=== PATIENT | female | born 1960 | race African-American/Black ===

== ENCOUNTER 2025-01-09 13:18 | Outpatient (REF) | payer MEDICAID, SELFPAY ==
--- NOTE | ~2025-01-09 | XR_ITS ---
CLINICAL HISTORY: M25.511 - Pain in right shoulder 3 view right shoulder Comparison: None Findings: Bones intact. No dislocations. Glenohumeral joint space loss with osteophyte formation. Subacromial space is maintained. Mild AC joint hypertrophy. No erosions. No radiopaque foreign body. IMPRESSION: 1. Degenerative changes of the glenohumeral and AC joint. No fracture or malalignment. This document has been electronically signed by: Randee Mittal MD on 01/11/2025 08:58:49
== END 2025-01-09 13:19 | disposition home or self-care (01) ==
LOC: HO.HOSX 13:18
PROVIDERS: Visit Provider Physician Assistant
DX: M25.511 Pain in right shoulder (principal); M19.011 Primary osteoarthritis, right shoulder
CPT/HCPCS: 73030; 99212

== ENCOUNTER 2025-01-09 14:21 | Outpatient (AMB) | payer MEDICAID, SELFPAY ==
--- NOTE | 2025-01-09 14:52 | MHC.OFFVIS ---
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 was told rotator cuff replacement. cortisone injection did not help at [facility]. humerus lump at bicep that radiates up to her shoulder. constant. No other tx. PT made her pain worse. numbness and tingling in her fingers. 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 She denies injury. She states she has been having pain with daily activities. She has pain at night with sleeping. She has done physical therapy in the past with minimal relief. 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 Tenderness over the bicipital groove and along deltoid region of the shoulder. FF to 175, ER to 90, IR to S1. 5/5 RTC strength, negative jones, cross body abduction. NVI. Results Reviewed Results Reviewed: Xrays were obtained in the office today and personally reviewed by me of the right shoulder show mild acj / ghj oa Assessment & Plan Assessment & Plan (1) Osteoarthritis of right shoulder: Code(s): M19.011 - Primary osteoarthritis, right shoulder Category: Medical Plan Given her ongoing pain and weakness with activity an MRI of the right shoulder has been ordered to further evaluate the rotator cuff and surrounding structures. Once this is complete I will contact her to discuss the next step in her treatment. Orders: Orders MR shoulder RT wo con Today M77.8 - Other enthesopathies, not elsewhere classified XR shoulder RT min 2V Today M25.511 - Pain in right shoulder Coding Level of Care Code New Pt Level 3 (56000) Complex EM visit Add On G2211 Diagnoses Osteoarthritis of right shoulder M19.011
[2025-01-09 14:56] VITALS: BMI 34.7
== END 2025-01-09 15:48 | disposition home or self-care (01) ==
LOC: HO.HOS 14:22
PROVIDERS: Visit Provider Physician Assistant
DX: M19.011 Primary osteoarthritis, right shoulder (principal)
CPT/HCPCS: 99203

== ENCOUNTER → 2025-01-09 14:38 | Outpatient (BNV) | payer MEDICAID, SELFPAY | PROVIDERS: Visit Provider Radiology Diagnostic Radiology | DX: M19.011 Primary osteoarthritis, right shoulder (principal) | CPT/HCPCS: 73030 ==

== ENCOUNTER 2025-01-12 07:31 | Outpatient (REF) | payer MEDICAID, SELFPAY ==
--- NOTE | ~2025-01-12 | MR_ITS ---
EXAMINATION: MRI RIGHT SHOULDER WITHOUT CONTRAST HISTORY: M77.8 - Other enthesopathies, not elsewhere classified COMPARISON: Correlation is made with plain films of the right shoulder dated 01/09/2025. TECHNIQUE: Coronal T1, T2, and fat suppressed T2, axial fat suppressed proton density, and sagittal T2 weighted MR images of the right shoulder were obtained. FINDINGS: Bone Marrow: There are subchondral cysts in the humeral head in the region of the greater tuberosity. Joint effusion: There is no glenohumeral joint effusion. Glenohumeral joint: There is severe osteoarthritis of the glenohumeral joint with cartilage loss and osteophyte formation. AC joint: There is a moderate to severe osteoarthritis of the AC joint. Supraspinatus muscle/tendon: There is intrasubstance increased T2 signal intensity consistent with degeneration. There is irregularity of the supraspinatus tendon, particularly at its joint surface, consistent with a partial tear. Small focus of fluid signal intensity is seen at the insertion of the tendon which may indicate a small full-thickness tear. There is trace fluid in the subdeltoid bursa. Normal muscle bulk. Infraspinatus muscle/tendon: The infraspinatus tendon is intact. Normal muscle bulk. Teres minor muscle/tendon: The teres minor tendon is intact. Normal muscle bulk. Subscapularis muscle/tendon: The subscapularis tendon is intact. Normal muscle bulk. Biceps tendon: The biceps tendon is intact and normally located. Glenoid labrum: The glenoid labrum is grossly unremarkable in appearance, although evaluation is limited by lack of a joint effusion. Other findings: None MR/MR shoulder RT wo con IMPRESSION: 1. Severe osteoarthritis of the glenohumeral joint. Moderate to severe osteoarthritis of the AC joint. 2. Findings consistent with a partial joint surface tear of the supraspinatus tendon. Possible small full-thickness tear at the insertion of the tendon. Electronically signed by: Fernandez Gold MD 01/13/2025 07:40 AM EDT
--- OUTSIDE RECORDS SUMMARY | 2025-01-12 07:33 | XMS_ITS | Clinical Summary ---
Author Organization [facility] Address [address] [place] [address] Care Team Providers Care Certified Personal Finance Counselor Name Role Phone Unavailable Primary Care Provider Unavailabl e Immunizations Name Administration Dates Next Due Pfizer SARS-CoV-2 COVID-19, mRNA, LNP-S, preservative free 03/18/2021,02/25/2021 Surgical History Surgery Date Site/Laterality Comments BUNIONECTOMY 2000 PROCEDURE: BUNION SURGERY, SIMPLE REMOVAL Social History Tobacco Use Types Packs/Day Years Used Date Smoking Tobacco: Former Smokeless Tobacco: Never Alcohol Use Standard Drinks/Week Comments Not Currently 0 (1 standard drink = 0.6 oz pur e alcohol) Comments Unknown Sex and Gender Information Value Date Recorded Sex Assigned at Not on file Legal Sex Female 12:30 PM EST Gender Identity Not on file Sexual Orientation Not on file Obstetrics History Last Filed Vital Signs Vital Sign Reading Time Taken Comments Blood Pressure - - Pulse - - Temperature - - Respiratory Rate - - Oxygen Saturation - - Inhaled Oxygen Concentration - - Weight 82.1 kg (181 lb) 01/07/2023 11:09 AM EDT Height 160 cm (5' 3 ) 01/07/2023 11:09 AM EDT Body Mass Index 32.06 01/07/2023 11:09 AM EDT Plan of Treatment Health Maintenance Due Date Last Done Comments Breast Cancer Screening 1958 DTaP,Tdap,and Td Vaccines (1 - Tdap) 1977 Pneumococcal Vaccine: 50+ Years (1 of 1 - PCV) 2008 Zoster Vaccines (1 of 2) 2008 Colorectal Cancer Screening: Colonoscopy 09/23/2022 Depression Screening 09/23/2022 Hepatitis C Screening 09/23/2022 Osteoporosis Screening (Bone Density Screening) 09/23/2022 Social Influencers of Health Screening 09/23/2022 Falls Risk Assessment 2023 COVID-19 Vaccine (3 2023-2 5 season) 2024 03/18/2021, 02/25/2021 Influenza Vaccine (#1) 2024 RSV Immunization Patients 60 + Years Old (1 - 1-dose 75+ series) 2033 HIB Vaccines Aged Out No longer eligi ble based on patient's age to complete this topic HPV Vaccines Aged Out No longer eligi ble based on patient's age to complete this topic Hepatitis A Vaccines Aged Out No long er eligible based on patient's age to complete this topic Hepatitis B Vaccines Aged Out No long er eligible based on patient's age to complete this topic IPV Vaccines Aged Out No longer eligi ble based on patient's age to complete this topic MMR Vaccines Aged Out No longer eligi ble based on patient's age to complete this topic Meningococcal ACWY Vaccine Aged Out N o longer eligible based on patient's age to complete this topic Meningococcal B Vacine Aged Out No lo nger eligible based on patient's age to complete this topic RSV Immunization Patients Under 20 months Aged Out No longer eligible b ased on patient's age to complete this topic Varicella Vaccines Aged Out No longer eligible based on patient's age to complete this topic
== END 2025-01-12 07:32 | disposition home or self-care (01) ==
LOC: HO.MRI 07:31
PROVIDERS: PCP Nurse Practitioner Family; Visit Provider Physician Assistant
DX: M77.8 Other enthesopathies, not elsewhere classified (principal)
CPT/HCPCS: 73221

== ENCOUNTER → 2025-01-12 07:47 | Outpatient (BNV) | payer MEDICAID, SELFPAY | PROVIDERS: PCP Nurse Practitioner Family; Visit Provider Radiology Diagnostic Radiology | DX: M77.8 Other enthesopathies, not elsewhere classified (principal); M19.011 Primary osteoarthritis, right shoulder | CPT/HCPCS: 73221 ==

== ENCOUNTER 2025-01-20 14:23 | Outpatient (AMB) | payer MEDICAID, SELFPAY ==
--- NOTE | 2025-01-20 14:31 | MHC.OFFVIS ---
Intake Visit Reasons: OV-MRI RIGHT SHOULDER- Review Intake Note: Ashley is a 64 year old female who presents today for a Right Shoulder MRI Review. Patient previously reports longstanding right shoulder pain and weakness, with hx of cortisone injection with no relief. Right Shoulder MRI 01/12/25: IMPRESSION: 1. Severe osteoarthritis of the glenohumeral joint. Moderate to severe osteoarthritis of the AC joint. 2. Findings consistent with a partial joint surface tear of the supraspinatus tendon. Possible small full-thickness tear at the insertion of the tendon Allergies No Known Allergies Allergy (Verified 01/09/25 14:54) HPI HPI OV-MRI RIGHT SHOULDER- Review: Details: 64-year-old female returns to the office today for a follow-up right shoulder MRI review. She continues to have limitations with her daily activities along with weakness in the shoulder. 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 Tenderness over the bicipital groove and along deltoid region of the shoulder. FF to 175, ER to 90, IR to S1. 5/5 RTC strength, negative jones, cross body abduction. NVI. Assessment & Plan Assessment & Plan (1) Osteoarthritis of right shoulder: Code(s): M19.011 - Primary osteoarthritis, right shoulder Category: Medical Plan: MRI was reviewed with patient along with options available today given that she has continued limitations with daily activities and MRI findings consistent with severe osteoarthritis along with partial cuff tear she would like to discuss further intervention such as surgery. Unclear if this would be a rotator cuff repair versus shoulder arthroplasty. She will meet with Dr. Butcher to discuss further. Coding Level of Care Code Est Pt Level 3 (82509) Complex EM visit Add On G2211 Diagnoses Osteoarthritis of right shoulder M19.011
== END 2025-01-20 14:53 | disposition home or self-care (01) ==
LOC: HO.HOS 14:23
PROVIDERS: PCP Nurse Practitioner Family; Visit Provider Physician Assistant
DX: M19.011 Primary osteoarthritis, right shoulder (principal)
CPT/HCPCS: 99213

== ENCOUNTER → 2025-01-20 14:23 | Outpatient (BNVA) | payer MEDICAID, SELFPAY | PROVIDERS: PCP Nurse Practitioner Family; Visit Provider Physician Assistant | DX: M19.011 Primary osteoarthritis, right shoulder (principal) | CPT/HCPCS: 99212 ==

== ENCOUNTER 2025-03-02 10:10 | Outpatient (AMB) | payer MEDICAID, SELFPAY ==
--- NOTE | 2025-03-02 10:11 | A.OFFVIS_ITS ---
Vital Signs 03/02/25 10:15 Height 5 ft 3 in Weight 196 lb BMI 34.7 Intake Visit Reasons: OV- Right shoulder OA, discuss sx Intake Note: Ashley is a 64 year old right hand dominant female who presents today for a follow up of her right shoulder to discuss possible surgery. She was last seen with Brett Lopez who discussed TKA vs RTC Repair Allergies No Known Allergies Allergy (Verified 03/02/25 10:15) HPI HPI OV- Right shoulder OA, discuss sx: Details: Ashley is a 64 year old right hand dominant female who presents today for a follow up of her right shoulder to discuss possible surgery. She was last seen with Brett Lopez who discussed TSA vs RTC Repair. She describes a long history of right shoulder pain. Over the last year she has been unable to engage in activities he enjoys. 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 She has not been doing this in the last 3 months in the pain has persisted. She describes difficulty sleeping. She does not describe stiffness. 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 She simmons s 90/140 of passive. Active motion she has a 4+ / 5 empty can and a negative lift-off. Results Reviewed Results Reviewed: I personally reviewed the MR images. Right Shoulder MRI 01/12/25: IMPRESSION: 1. Severe osteoarthritis of the glenohumeral joint. Moderate to severe osteoarthritis of the AC joint. 2. Findings consistent with a partial joint surface tear of the supraspinatus tendon. Possible small full-thickness tear at the insertion of the tendon Assessment & Plan Assessment & Plan (1) Partial thickness rotator cuff tear: Code(s): M75.110 - Incomplete rotator cuff tear or rupture of unspecified shoulder, not specified as traumatic Category: Medical Plan: This is a 64-year-old woman with right shoulder pain, weakness and inability to engage in overhead activities comfortably. MRI suggests severe arthritis but she has excellent motion and her symptoms are attributable to her rotator cuff dysfunction. I explained this to her. I do not think arthroplasty is appropriate at this time and would recommend shoulder arthroscopy with possible biceps tenotomy and possible rotator cuff repair. I discussed some of the potential downsides of the rotator cuff repair in the setting of arthritis and I suspect that she has a partial tear that may be amenable to collagen patch augmentation. I think this would be reasonable and I think a chondroplasty with debridement of loose bodies in the glenohumeral joint would also be beneficial. She understands that this might be temporary and that she may need arthroplasty in the future but at this time I think arthroplasty is too aggressive. I explained the risks benefits and alternatives to surgery. She expressed understanding and we will proceed forward accordingly. (2) Osteoarthritis of right shoulder: Code(s): M19.011 - Primary osteoarthritis, right shoulder Category: Medical Plan: Coding Level of Care Code Est Pt Level 4 (35890) Diagnoses Partial thickness rotator cuff tear M75.110 Osteoarthritis of right shoulder M19.011
[2025-03-02 10:15] VITALS: BMI 34.7
--- OUTSIDE RECORDS SUMMARY | 2025-03-02 11:19 | XMS_ITS | Clinical Summary ---
Author Organization [facility] Address [address] [place] [address] Care Team Providers Care Lockstitch Waistline Joiner Name Role Phone Unavailable Primary Care Provider [...] Falls Risk Assessment 2023 COVID-19 Vaccine (3 - 2023-2 5 season) 2024 03/18/2021, 02/25/2021 Influenza Vaccine (Season Ended) 2025 RSV Immunization Adult Patients (1 - 1-dose 75+ series) 2033 HIB [...] age to complete this topic Meningococcal B Vaccine Aged Out No l onger eligible based on patient's age to complete this topic RSV Immunization Patients Under 20 months Aged Out No longer eligible b ased on patient's age to complete this topic Varicella Vaccines Aged Out No longer eligible based on patient's age to complete this topic
== END 2025-03-02 10:47 | disposition home or self-care (01) ==
LOC: HO.HOS 10:10
PROVIDERS: PCP Nurse Practitioner Family; Visit Provider Orthopaedic Surgery
DX: M75.111 Incomplete rotator cuff tear or rupture of right shoulder, not specified as traumatic (principal); M19.011 Primary osteoarthritis, right shoulder
CPT/HCPCS: 99214

== ENCOUNTER → 2025-03-02 10:10 | Outpatient (BNVA) | payer MEDICAID, SELFPAY | PROVIDERS: PCP Nurse Practitioner Family; Visit Provider Orthopaedic Surgery | DX: M19.011 Primary osteoarthritis, right shoulder (principal); M75.110 Incomplete rotator cuff tear or rupture of unspecified shoulder, not specified as traumatic | CPT/HCPCS: 99212 ==

== ENCOUNTER 2025-03-14 06:34 | Day surgery (SDC) | payer MEDICAID, SELFPAY ==
--- OUTSIDE RECORDS SUMMARY | 2025-03-02 12:28 | XMS_ITS | Clinical Summary ---
Author Organization [facility] Address [address] [place] [address] Care Team Providers Care Vocational Rehabilitation Teacher Name Role Phone Unavailable Primary Care Provider [...]
[2025-03-10 10:08] VITALS: BMI 34.7
--- NOTE | 2025-03-10 12:04 | HO.ANESPROP2 ---
Documented by User: Shirley Sepulveda NP 03/10/25 12:04 HPI - Anesthesia Eval Consult details Narrative: 64yo F for Right Shoulder Arthroscopy, possible biceps tenotomy,with possible chondroplasty with debridement,possible rotator cuff repair, PMFSH Active Problems Active Problems: All Active Problems Partial thickness rotator cuff tear (Acute) Osteoarthritis of right shoulder (Acute) Past Medical History Medical History Elevated cholesterol HTN (hypertension) Surgical History Surgical History History of bunionectomy History of back surgery Social History Social History Comment: patient fell on saturday 03/10, hit right shoulder Patient Tobacco Use Status: Former Tobacco user Tobacco use type: Cigarette Smoked in Last 30 Days: No Use of substances other than those prescribed or required for medical reasons: No Have you been hit, kicked, punched, or otherwise hurt by someone within the past year? 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 Meds Allergies Allergy/AdvReac Type Severity Reaction Status Date / Time sulfamethoxazole Allergy Unknown Unknown Verified 03/14/25 07:13 [From Bactrim] trimethoprim [From Bactrim] Allergy Unknown Unknown Verified 03/14/25 07:13 Home Medications ?Medication ?Instructions ?Recorded ?Confirmed ?Last Taken ?Type atorvastatin 20 mg tablet (Lipitor) 20 mg PO DAILY 01/09/25 03/14/25 03/13/25 History calcium carbonate 260 mg PO DAILY 01/09/25 03/14/25 03/13/25 History lisinopril 10 1 tab PO DAILY 01/09/25 03/14/25 03/13/25 History mg-hydrochlorothiazide 12.5 mg tablet Exam Height,Weight and Vital Signs: Height 5 ft 3 in Weight 88.904 kg Assessment and Plan Assessment Anesthesia Assessment: Chart Reviewed Documented by User: Meredith Bardales MD 03/14/25 08:43 PMFSH Past Medical History Medical History Elevated cholesterol HTN (hypertension) Family History Family history of problems with anesthesia: No Surgical History Surgical History History of bunionectomy History of back surgery History of Problems with Anesthesia: No Social History Social History Comment: patient fell on saturday 03/10, hit right shoulder Patient Tobacco Use Status: Former Tobacco user Tobacco use type: Cigarette Smoked in Last 30 Days: No Use of substances other than those prescribed or required for medical reasons: No Have you been hit, kicked, punched, or otherwise hurt by someone within the past year? 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 Meds Allergies Allergy/AdvReac Type Severity Reaction Status Date / Time sulfamethoxazole Allergy Unknown Unknown Verified 03/14/25 07:13 [From Bactrim] trimethoprim [From Bactrim] Allergy Unknown Unknown Verified 03/14/25 07:13 Home Medications ?Medication ?Instructions ?Recorded ?Confirmed ?Last Taken ?Type atorvastatin 20 mg tablet (Lipitor) 20 mg PO DAILY 01/09/25 03/14/25 03/13/25 History calcium carbonate 260 mg PO DAILY 01/09/25 03/14/25 03/13/25 History lisinopril 10 1 tab PO DAILY 01/09/25 03/14/25 03/13/25 History mg-hydrochlorothiazide 12.5 mg tablet Exam Airway Mallampati Class: II TM Dist: >3cm Neck ROM: Full Heart: rrr Lungs: cta Assessment and Plan Assessment Anesthesia Assessment: Anesthesia Plan Discussed Final Anesthetic Review Family History of Problems with Anesthesia: No History of Problems with Anesthesia: No NPO: Yes ASA Class: II Final Preanesthetic Review: No Changes in Pt Med Stat, Meds/Allgs Chart Reviewed, Consent Obtained/Reviewed and Anes Risks/Benef Reviewed Patient Risk: Low Procedure Risk: Intermediate Anesthetic Plan Anesthetic Plan: Regional Block and Agree w/ Assess. and Plan Disposition: Standard PACU
[2025-03-14] VITALS (18 sets, daily range): BP systolic 108–154; BP diastolic 55–91; PULSE 51–84; RESP 11–23; TEMP 35.9–36.9; O2SAT 95–100; BMI 33.3; BMI 35.0
[2025-03-14] MEDS: Lactated Ringers 1,000 ML 100 ML IVCONT (07:26)
--- NOTE | 2025-03-14 07:28 | MHC.SHP ---
Pre-Procedural Eval Section A - 24 Hr Update-Section A only Date of Service: 03/14/25 The patient is an INPATIENT: No Changes since office visit: No Cold of Flu in the past 2 weeks, No New Medical Problems, No Changes in Medication and No Patient answered all questions The patient has been examined within 24 hours of the surgical procedure. The History & Physical has been completed within 30 days and I have reviewed it.: Yes Section B - Complete if H&P > 30 days Chief Complaint: Complete rotator cuff tear or rupture of right francisco Allergies: Allergies Allergy/AdvReac Type Severity Reaction Status Date / Time sulfamethoxazole Allergy Unknown Unknown Verified 03/14/25 07:13 [From Bactrim] trimethoprim [From Bactrim] Allergy Unknown Unknown Verified 03/14/25 07:13 Plan I have reviewed the history and physical and performed a pertinent physical examination on my patient. No changes have occurred unless specified. Time Spent With Patient Time: Total time managing care of this patient today ____ minutes.
[2025-03-14] MEDS: ceFAZolin Sodium/Dextrose,Iso 2 GM/50 ML PIGGYBACK IV (09:15)
[2025-03-14] MEDS: Acetaminophen 1,000 MG/100 ML PIGGYBACK 400 MG IV (09:30)
--- NOTE | 2025-03-14 11:07 | PM.OP ---
Brief Operative Note Date of Service: 03/14/25 Pre-op diagnosis: right shoulder RTC tear with OA. Post-op diagnosis: same Procedure: RTC repair with SAD and chondrolplasty with removal of loose body Implants: S&N double loaded 4.75 medial row x 2 and 5.0 lateral row Knotless Helacoil x 2 Regeneten bio inductive medium collagen patch Surgeon: Daryl Butcher MD Anesthesia: regional Was an Research/Program Director used for this Procedure?: Yes Research/Program Director: Brett Lopez Estimated blood loss (mL): 25 IV fluids (mL): 1,000 Pathology: none sent Condition: stable Disposition: PACU
[2025-03-14] MEDS: Haloperidol Lactate 5 MG/ML VIAL 1 MG IVPUSH (12:09)
--- NOTE | 2025-03-14 13:24 | ECG_ITS ---
Test Reason : POST OP Blood Pressure : */* mmHG Vent. Rate : 52 BPM Atrial Rate : 52 BPM P-R Int : 170 ms QRS Dur : 150 ms QT Int : 510 ms P-R-T Axes : 8 -32 -12 degrees QTcB Int : 474 ms Sinus bradycardia Left axis deviation Right bundle branch block Minimal voltage criteria for LVH, may be normal variant ( R in aVL ) Abnormal ECG No previous ECGs available Referred By: Meredith Bardales Electronically Signed By: Carloz Alejandra
--- NOTE | 2025-03-14 14:08 | PM.EVENT ---
Event Note Date of Service: 03/14/25 Event Note: Patient became lethargic while in PACU c/o chest pain and difficulty with breathing EKG was negative for cardiac abnormalities Patient admitted for extended stay Sling remain intact at all times Plan Dispo Home self care when surgically / medically cleared. Time Spent With Patient Time: Total time managing care of this patient today ____ minutes.
--- NOTE | 2025-03-14 14:51 | P.DS_ITS ---
DS: Providers Provider Date of Service: 03/15/25 Date of discharge: 03/15/25 Primary care physician: Shirley Diallo NP DS: Summary Hospital Course Hospital Course: The patient underwent a successful right shoulder rotator cuff repair, while in the PACU the patient became lethargic and c/o CP and difficulty breathing. Anesthesia recommended obtaining an EKD, which was negative for any ab normalities. Recommendation for overnight observation. During their stay, their vitals were stable, afebrile at ( ). POD 1 patient felt significant improvement and therefore was to be discharged home with continued out patient follow-up. Her post op appt is on 03/22/25 at 10:00 AM with Brett Lopez PA-C. Sling is to remain on at all times, even duing sleep. Time Attestation Discharge Coordination Time (in mins): 30 Quality: Safe Use of Opioids Does Pt have an Active Cancer Diagnosis on the Problem List?: No Quality: Stroke Does the patient have a stroke diagnosis?: No Physical Exam Vital Signs: Vital Signs: Last Vital Signs Temp 97.1 F 03/14/25 14:37 Pulse 65 03/14/25 14:37 Resp 14 03/14/25 14:37 BP 108/65 03/14/25 14:37 Pulse Ox 96 03/14/25 14:37 O2 Del Method Room Air 03/14/25 14:37 O2 Flow Rate 2 03/14/25 13:52 BMI result Body Mass Index 33.3 Const: General: cooperative, healthy appearing and no acute distress Resp: Effort & Inspection: normal respiratory effort and able to speak in complete sentences Extrem: Other: Right shoulder bandage is c/d/i and sling positioned appropriately. Able to flex and extend at the wrist. Tingling in some digits which is her baseline. Discharge Plan Discharge Patient Disposition: Home, Self-Care Referrals: Brett Lopez PA-C [Physician Drop Hammer Mechanic] - 03/22/25 10:00 am (03/22/25 10:00 [facility] Brett Lopez PA-C) Discharge Medications: New acetaminophen 325 mg tablet 650 mg PO Q6H PRN (Reason: Pain, Mild (Pain Scale 1-3)) 30 Days Qty: 240 0RF morphine [MS Contin] 15 mg tablet extended release 15 mg PO Q12H 3 Days Qty: 6 0RF Rx Instructions: Partial Fill upon patient request. oxycodone 5 mg tablet 5 mg PO Q4H PRN (Reason: pain) 7 Days Qty: 42 0RF Rx Instructions: Partial Fill upon patient request. Continued atorvastatin [Lipitor] 20 mg tablet 20 mg PO DAILY lisinopril-hydrochlorothiazide 10-12.5 mg tablet 1 tab PO DAILY calcium carbonate 260 mg calcium (648 mg) tablet 260 mg PO DAILY Discharge Orders: Discharge Order (Routine); Ordered 03/15/25 Ordered By: Nikki Figueroa Diet: Regular diet Activity on Discharge: Use Splints or Immobilizers Activity Restrictions/Additional Instructions: * Wear sling at all times-OK to remove for pendulum exercises throughout the day * No lifting-OK to move arm at elbow and wrist * Do not bathe or shower--OK to remove bandage after day 3, cover with bandaids. * Call [facility] with any questions or concerns. * Follow up with orthopedics in 7-10 days post op Print Language: Hong Konger
--- NOTE | 2025-03-14 15:44 | P.CONHOSP_ITS ---
History of Present Illness Data of Consult Service Date: 03/14/25 Primary Care Provider: Shirley Diallo NP HPI 64-year-old woman admitted by Orthopedic surgery and is status post RTC repair with SCD and chondroplasty with removal of loose body. Surgery was unremarkable. Patient did come out of surgery little bit lethargic. At this time patient is not noted to be hypoxic, no fever. She was still pretty drowsy likely from perioperative medications. We will monitor patient closely Review of Systems Review of Systems: Yes Other (Postsurgical drowsiness) [facility] Medical History Elevated cholesterol HTN (hypertension) Surgical History History of bunionectomy History of back surgery Social History Household Members: Spouse Comment: patient fell on saturday 03/10, hit right shoulder Patient Tobacco Use Status: Former Tobacco user Tobacco use type: Cigarette Smoked in Last 30 Days: No Use of substances other than those prescribed or required for medical reasons: No Have you been hit, kicked, punched, or otherwise hurt by someone within the past year? 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 Meds Allergies Allergy/AdvReac Type Severity Reaction Status Date / Time sulfamethoxazole Allergy Unknown Unknown Verified 03/14/25 07:13 [From Bactrim] trimethoprim [From Bactrim] Allergy Unknown Unknown Verified 03/14/25 07:13 Active Medications: Current Medications Acetaminophen (Acetaminophen 325 Mg Tablet) 650 mg PO Q6H PRN PRN Reason: Pain, Mild 1-3,fever,headache Atorvastatin Calcium (Atorvastatin Calcium 20 Mg Tablet) 20 mg PO DAILY [facility]LA[facility] Calcium Carbonate (Calcium Oyster Shell Elemental 500 Mg Tablet) 500 mg PO DAILY [facility] Lisinopril 10 mg/ (Hydrochlorothiazide 12.5 mg) 0 mg PO DAILY [facility] Docusate Sodium (Docusate Sodium 100 Mg Capsule) 100 mg PO BID [facility] Ondansetron HCl (Ondansetron Hcl 4 Mg/2 Ml Vial) 4 mg IVPUSH Q8H PRN PRN Reason: Nausea and Vomiting Oxycodone HCl (Oxycodone Hcl Immed Release 5 Mg Tablet) 5 mg PO Q4H PRN PRN Reason: Pain, Moderate(Pain Scale 4-6) Oxycodone HCl (Oxycodone Hcl Er 10 Mg Tab.Er.12h) 10 mg PO BID [facility] Sodium Chloride (0.9 % Sodium Chloride Flush 3 Ml Syringe) 3 ml IVFLUSH QSHIFT [facility] Home Medications ?Medication ?Instructions ?Recorded ?Confirmed ?Last Taken ?Type atorvastatin 20 mg tablet (Lipitor) 20 mg PO DAILY 01/09/25 03/14/25 03/13/25 History calcium carbonate 260 mg PO DAILY 01/09/25 03/14/25 03/13/25 History lisinopril 10 1 tab PO DAILY 01/09/25 03/14/25 03/13/25 History mg-hydrochlorothiazide 12.5 mg tablet Physical Exam Vital Signs and Narrative: Vital Signs: Last Vital Signs Temp 96.6 F L 03/14/25 15:21 Pulse 57 03/14/25 15:21 Resp 20 03/14/25 15:21 BP 131/72 03/14/25 15:21 Pulse Ox 97 03/14/25 15:21 O2 Del Method Room Air 03/14/25 15:21 O2 Flow Rate 2 03/14/25 13:52 BMI result Body Mass Index 35.0 Appearing in no acute distress, drowsy head is normocephalic atraumatic eyes pupils are PERRLA sclera is anicteric mouth throat mucous membranes are intact and moist neck is supple no lymphadenopathy, no JVD noted lung sounds are clear to auscultation heart regular rate rhythm, clear S1, S2 positive bowel sounds, abdomen is soft, nontender neuro patient sleeping Assessment and Plan (1) Osteoarthritis of right shoulder: Status: Acute Plan 64-year-old woman status post shoulder surgery Right shoulder RTC repair with SCD and chondroplasty with removal of loose body Management as per surgical team Postsurgical lethargy No hypoxia noted Likely secondary to perioperative sedating medications Avoid giving anything NPO at this time until patient wakes up some more Place continuous oxygen saturation monitor for now Hypertension May resume home antihypertensive medications when able to take p.o. Hyperlipidemia May resume statin when able to take p.o. DVT prophylaxis as per surgical team Full code according to the EMR Medical consultation complete. Will sign off
[2025-03-14] MEDS: Docusate Sodium 100 MG CAPSULE PO (21:16)
[2025-03-14] MEDS: 0.9 % Sodium Chloride Flush 3 ML SYRINGE IVFLUSH (21:28)
[2025-03-14] MEDS: Acetaminophen 325 MG TABLET 650 MG PO (21:28)
[2025-03-15 03:26] VITALS: BP 115/58; PULSE 92; RESP 18; TEMP 36.3; O2SAT 94
[2025-03-15] MEDS: Acetaminophen 325 MG TABLET 650 MG PO (06:23)
[2025-03-15 07:04] VITALS: BP 141/74; PULSE 79; RESP 18; TEMP 37.1; O2SAT 97
[2025-03-15] MEDS: oxyCODONE HCl ER 10 MG TAB.ER.12H PO (07:24)
[2025-03-15] MEDS: Atorvastatin Calcium 20 MG TABLET PO (07:25)
[2025-03-15] MEDS: Docusate Sodium 100 MG CAPSULE PO (07:25)
[2025-03-15] MEDS: lisinopriL 10 MG, hydroCHLOROthiazide 12.5 MG PO (07:25)
[2025-03-15] MEDS: 0.9 % Sodium Chloride Flush 3 ML SYRINGE IVFLUSH (07:26)
[2025-03-15] MEDS: Calcium Oyster Shell Elemental 500 MG TABLET PO (07:26)
[2025-03-15] MEDS: oxyCODONE HCl Immed Release 5 MG TABLET PO (09:35)
--- NOTE | 2025-03-15 09:59 | HO.POSTANES ---
Post Anesthesia Evaluation Post Anesthesia Evaluation Date of Service: 03/15/25 Vital Signs: Vital Signs Temp Pulse Resp BP Pulse Ox O2 Del Method 03/15/25 07:04 98.8 F 79 18 141/74 H 97 Room Air 03/15/25 03:26 97.3 F 92 18 115/58 L 94 Room Air Anesthesia: General Mental Status: Awake Pain Control: Satisfactory Nausea/Vomiting: None Hydration: Adequate Anesthesia-Related Issues: No Anes. Related Issues
--- NOTE | 2025-03-15 10:15 | MHC.CM.PN ---
Addendum entered by Brissa Holloway 03/15/25 11:11: Patient is discharged today home self care. Her son, Sha will provide transportation home. Original Note: S/P FALL + Rotater Cuff Repair Lives with dtr+ grands Independent prior to admit. New HCP documentation complete DP Home self care Son Sha will provide transportation home.
[2025-03-15 11:51] VITALS: BP 135/78; PULSE 78; RESP 18; TEMP 36.2; O2SAT 96
--- NOTE | 2025-03-16 08:46 | P.OP_ITS ---
Operative Note Operative Note Date of Service: 03/14/25 Narrative: Date of Service: 03/14/25 Pre-op diagnosis: right shoulder RTC tear with OA. Post-op diagnosis: same Procedure: RTC repair with SAD and chondrolplasty with removal of loose body Implants: S&N double loaded 4.75 medial row x 2 and 5.0 lateral row Knotless Helacoil x 2 Regeneten bio inductive medium collagen patch Surgeon: Daryl Butcher MD Anesthesia: regional Was an Furnace Repairer used for this Procedure?: Yes Furnace Repairer: Brett Lopez Estimated blood loss (mL): 25 IV fluids (mL): 1,000 Pathology: none sent Condition: stable Disposition: PACU Procedure in detail: Patient was brought to the operating room and placed the the beach chair position. All bony prominences were well padded and the limb was prepped and draped in standard sterile fashion. A time out was called to identify proper site, proper procedure and proper surgeon. IV antibiotics per weight were administered. I began by making a postero-lateral stab incision with a 15 blade. A blunt trochar was placed into the glenohumeral joint and I insufflated the joint with saline and a 30 degree arthroscope was placed. I established an outside- in anterior portal just distal to the biceps tendon. I then began my inspection of the glenohumeral joint. There were moderate changes to glenoid seda-inferiorly and the humeral head posteriorly. There was a large loose body in the seda-inferior glenoid, possible an old bony bankhart that did not heal. It did not ,however, appear to be from the seda-inferior glenoid. There was a full thickness undersurface RTC tear (supra). The subcapularis was intact. I debrided the loose cartilage of the glenoid and the degenerative labral tearing. The biceps labral complex was normal. I then removed the large osteophyte with a grasper and debrided the anterior labrum. There a negative drive through sign. I then removed the trochar and entered the subacromial space. A direct lateral portal was then established and I performed a bursectomy. The cuff was then examined. There was a full thickness tear of the supraspinatus without retraction. The tissue was ragged and the anterior 1/2 of the infraspiantus was involved. The tear was mobile. I placed two medial row double loaded anchors after using a tap just adjacent to the articular cartilage and then brought the suture limbs ( 8) through the medial cuff. I then debrided the bare area down to bleeding bone and, using a cross bridge configuration, brought 4 limbs to each of two lateral 5.0 anchors. This re-approximated the cuff anatomy anatomically. A large Regeneten bipoinductive colalgen patch was then placed via the posterior portal over the repair site. This was secured with 6 PEEK soft tissue jocelyne and 2 lateral bone jocelyne. a 5mm anterior subacromial decompression was performed with an oval gaudencio. Once I was satisfied with the re pair and the patch position final images were captured and I removed all instrumentation. Portals were closed with nylon. Patient was placed in an abduction sling, extubated and brought to the recovery room in stable condition. There were no known complications.
== END 2025-03-15 12:35 | disposition home or self-care (01) ==
LOC: HO.SSS 07:25 → HO.S3 14:37
PROVIDERS: PCP Nurse Practitioner Family; Visit Provider Orthopaedic Surgery
PROC: (CPT 29805; principal; 2025-03-14 08:50)
DX: M75.121 Complete rotator cuff tear or rupture of right shoulder, not specified as traumatic (principal); T81.89XA Other complications of procedures, not elsewhere classified, initial encounter; J95.89 Other postprocedural complications and disorders of respiratory system, not elsewhere classified; R07.9 Chest pain, unspecified; R53.83 Other fatigue; R06.00 Dyspnea, unspecified; M24.011 Loose body in right shoulder; M19.011 Primary osteoarthritis, right shoulder; I10 Essential (primary) hypertension; E78.00 Pure hypercholesterolemia, unspecified
CPT/HCPCS: 29827; 29826; 29819; 93005; 97165; C1713; C1763; J0131; J0171; J0665; J0690; J1100; J1630; J1885; J2003; J2250; J2371; J2405; J2704

== ENCOUNTER → 2025-03-14 06:34 | Outpatient (BNV) | payer MEDICAID, SELFPAY | PROVIDERS: PCP Nurse Practitioner Family; Visit Provider Orthopaedic Surgery | DX: Z48.89 Encounter for other specified surgical aftercare (principal) | CPT/HCPCS: 29823; 29826; 29827; 99024; 99499 ==

== ENCOUNTER → 2025-03-14 06:34 | Outpatient (BNV) | payer MEDICAID, SELFPAY | PROVIDERS: PCP Nurse Practitioner Family; Visit Provider Nurse Practitioner Acute Care | DX: M19.011 Primary osteoarthritis, right shoulder (principal) | CPT/HCPCS: 99223 ==

== ENCOUNTER → 2025-03-14 13:24 | Outpatient (BNV) | payer MEDICAID, SELFPAY | PROVIDERS: PCP Nurse Practitioner Family; Visit Provider Internal Medicine Cardiovascular Disease | DX: I45.10 Unspecified right bundle-branch block (principal); R00.1 Bradycardia, unspecified | CPT/HCPCS: 93010 ==

== ENCOUNTER 2025-03-22 09:48 | Outpatient (AMB) | payer MEDICAID, SELFPAY ==
--- NOTE | 2025-03-22 09:54 | MHC.OFFVIS ---
Intake Visit Reasons: PO RT RTC repair 03/14/25 NE Intake Note: Ashley is a 64 year old female who presents today postoperatively after undergoing a RT RTC repair with SAD and chondrolplasty with removal of loose body on 03/14/[address] Butcher. Patient reports she is doing well, no pain however she has difficulty with sleeping in sling. Allergies sulfamethoxazole [From Bactrim] Allergy (Unknown, Verified 03/22/25 09:57) Unknown trimethoprim [From Bactrim] Allergy (Unknown, Verified 03/22/25 09:57) Unknown HPI HPI PO RT RTC repair 03/14/25 NE: Details: 64-year-old female returns to the office today status post right rotator cuff repair with collagen patch on 02/[address] Butcher. She states she is doing well. She is not taking her narcotic medication. She continues to use her sling. No concerns today. 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 No drainage. Neurovascularly intact. Results Reviewed Results Reviewed: Brief Operative Note Date of Service: 03/14/25 Pre-op diagnosis: right shoulder RTC tear with OA. Post-op diagnosis: same Procedure: RTC repair with SAD and chondrolplasty with removal of loose body Implants: S&N double loaded 4.75 medial row x 2 and 5.0 lateral row Knotless Helacoil x 2 Regeneten bio inductive medium collagen patch Assessment & Plan Assessment & Plan (1) Partial thickness rotator cuff tear: Code(s): M75.110 - Incomplete rotator cuff tear or rupture of unspecified shoulder, not specified as traumatic Category: Medical (2) Osteoarthritis of right shoulder: Code(s): M19.011 - Primary osteoarthritis, right shoulder Category: Medical Plan Sutures removed today Steri-Strips applied. She will continue to use a sling and I educated her on the proper use. She can come out of the sling for pendulums and physical therapy exercises. She can come out of the sling to allow her elbow to rest when she is in a controlled environment. She can shower however I encouraged her to not soak or scrub the area until the skin is completely healed. I did place an order for physical therapy and she will contact the [facility] physical therapy office to make an appointment no later than next week. Physical therapy will focus on passive and active assisted range of motion progressing to active range of motion. Periscapular stabilization. Continue with the sling until 6 weeks postop. No rotator cuff strength at this time. She will see us back in [address] Butcher for routine follow up, sooner if needed. Orders: Orders PT Evaluation and Treatment Today M19.011 - Primary osteoarthritis, right shoulder, M75.110 - Incomplete rotator cuff tear or rupture of unspecified shoulder, not specified as traumatic Coding Level of Care Code Global (35878) Diagnoses Partial thickness rotator cuff tear M75.110 Osteoarthritis of right shoulder M19.011
--- OUTSIDE RECORDS SUMMARY | 2025-03-22 10:33 | XMS_ITS | Clinical Summary ---
Author Organization [facility] Address [address] [place] [address] Care Team Providers Care Storage Management Consultant Name Role Phone Unavailable Primary Care Provider [...]
== END 2025-03-22 10:39 | disposition home or self-care (01) ==
LOC: HO.HOS 09:48
PROVIDERS: PCP Nurse Practitioner Family; Visit Provider Physician Assistant
DX: M75.110 Incomplete rotator cuff tear or rupture of unspecified shoulder, not specified as traumatic (principal); M19.011 Primary osteoarthritis, right shoulder
CPT/HCPCS: 99024

== ENCOUNTER → 2025-03-22 09:48 | Outpatient (BNVA) | payer MEDICAID, SELFPAY | PROVIDERS: PCP Nurse Practitioner Family; Visit Provider Physician Assistant | DX: Z47.89 Encounter for other orthopedic aftercare (principal); M75.110 Incomplete rotator cuff tear or rupture of unspecified shoulder, not specified as traumatic; M19.011 Primary osteoarthritis, right shoulder; Z98.890 Other specified postprocedural states | CPT/HCPCS: 99212 ==

== ENCOUNTER 2025-04-20 09:48 | Outpatient (AMB) | payer MEDICAID, SELFPAY ==
--- NOTE | 2025-04-20 09:54 | MHC.OFFVIS ---
Intake Visit Reasons: PO RT RTC repair 03/14/25 NE Intake Note: Ashley is a 64 year old right hand dominant female who presents today for a post operative follow up about one month s/p Right RTC Repair w/ SAD, Chondroplasty & Removal of Loose Body 03/14/25. Patient reports that she is doing well , with minimal pain. Allergies sulfamethoxazole (From Bactrim) Allergy (Unknown, Verified 03/22/25 09:57) Unknown trimethoprim (From Bactrim) Allergy (Unknown, Verified 03/22/25 09:57) Unknown HPI HPI PO RT RTC repair 03/14/25 NE: Details: 64-year-old woman 6 weeks status post right rotator cuff tear. She is stiff but doing well. She has been in therapy. 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 Active abduction 60 degrees. Portals clean dry and intact. Assessment & Plan Assessment & Plan (1) Status post right rotator cuff repair: Code(s): Z98.890 - Other specified postprocedural states Category: Surgical Plan: Ashley is status post right rotator cuff repair. She is stiff but faring well. She may discontinue her sling and follow up in 6 weeks. Continue PT. Instructed her on some of the mechanics of shoulder function. Plan She will follow up in 6 weeks with CHAY Lopez Coding Level of Care Code Global (47091) Diagnoses Status post right rotator cuff repair Z98.890
--- OUTSIDE RECORDS SUMMARY | 2025-04-20 11:06 | XMS_ITS | Clinical Summary ---
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
== END 2025-04-20 10:23 | disposition home or self-care (01) ==
LOC: HO.HOS 09:49
PROVIDERS: PCP Nurse Practitioner Family; Visit Provider Orthopaedic Surgery
DX: Z98.890 Other specified postprocedural states (principal)
CPT/HCPCS: 99024

== ENCOUNTER → 2025-04-20 09:48 | Outpatient (BNVA) | payer MEDICAID, SELFPAY | PROVIDERS: PCP Nurse Practitioner Family; Visit Provider Orthopaedic Surgery | DX: M25.611 Stiffness of right shoulder, not elsewhere classified (principal); Z98.890 Other specified postprocedural states | CPT/HCPCS: 99212 ==

== ENCOUNTER 2025-06-01 11:43 | Outpatient (AMB) | payer MEDICAID, SELFPAY ==
--- NOTE | 2025-06-01 11:47 | A.OFFVIS_ITS ---
Intake Visit Reasons: PO RT RTC repair 03/14/25 NE Intake Note: Ashley is a 65 year old female who presents today for a post operative visit of a right RTC repair on 03/14/25, perfromed by Dr. Butcher. Patient reports feeling soreness, states that she lifted a box yesterday and feels sore. She feels a tightness in her shoulder. She continues to attend physical therapy. Allergies sulfamethoxazole (From Bactrim) Allergy (Unknown, Verified 06/01/25 11:50) Unknown trimethoprim (From Bactrim) Allergy (Unknown, Verified 06/01/25 11:50) Unknown Medication List - Last Reconciled 06/01/25 by Brett Lopez PA-C acetaminophen 650 mg (2 x 325 mg) PO Q6H PRN 30 days atorvastatin (Lipitor) 20 mg PO DAILY calcium carbonate 260 mg PO DAILY lisinopril-hydrochlorothiazide 10-12.5 mg 1 tab PO DAILY HPI HPI PO RT RTC repair 03/14/25 NE: Details: 65-year-old female returns to the office today 6 weeks status post rotator cuff repair with Dr. Butcher on 02/2025. She has been working with physical therapy and has been progressing well. She states she did lift a box yesterday which was a little heavy and felt a strain in her shoulder. No other concerns today. 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 Internal rotation to back pocket. Assessment & Plan Assessment & Plan (1) Status post right rotator cuff repair: Code(s): Z98.890 - Other specified postprocedural states Category: Surgical Plan: She will continue to work with physical therapy slowly progressing and strength. I stressed the importance of not overdoing it with lifting or carrying objects at home. She will see us back in 6 weeks for routine postop appointment, sooner if needed. Coding Level of Care Code Global (41610) Diagnoses Status post right rotator cuff repair Z98.890
--- OUTSIDE RECORDS SUMMARY | 2025-06-01 12:17 | XMS_ITS | Clinical Summary ---
Author Organization [facility] Address [address] [place] [address] Care Team Providers Care Skin Diver Name Role Phone Unavailable Primary Care Provider [...] 2) 2008 Colorectal Cancer Screening: Colonoscopy 09/23/2022 Hepatitis C Screening 09/23/2022 Osteoporosis Screening (Bone Density Screening) 09/23/2022 Social Influencers of Health Screening 09/23/2022 Falls Risk Assessment 2023 COVID-19 Vaccine (3 - 2023-2 5 season) 2024 03/18/2021, 02/25/2021 Depression Screening 10/26/2024 Influenza Vaccine (#1) 2025 RSV Immunization Adult Patients (1 - [...]
== END 2025-06-01 11:58 | disposition home or self-care (01) ==
LOC: HO.HOS 11:44
PROVIDERS: PCP Nurse Practitioner Family; Visit Provider Physician Assistant
DX: Z98.890 Other specified postprocedural states (principal)
CPT/HCPCS: 99024

== ENCOUNTER → 2025-06-01 11:43 | Outpatient (BNVA) | payer MEDICAID, SELFPAY | PROVIDERS: PCP Nurse Practitioner Family; Visit Provider Physician Assistant | DX: Z98.890 Other specified postprocedural states (principal) | CPT/HCPCS: 99212 ==

== ENCOUNTER 2025-06-22 08:41 | Outpatient (REF) | payer MEDICAID, SELFPAY ==
--- OUTSIDE RECORDS SUMMARY | 2025-06-23 09:36 | XMS_ITS | Clinical Summary ---
Author Organization [facility] Address [address] [place] [address] Phone Care Team Providers Care Resident Care Spec Name Role Phone Physician, Pcp Unknown Primary Care Provider Ethel vailable Allergies Active Allergy Reactions Criticality Noted Date Comments Oxycodone-Acetaminophen 06/06/2025 Other Reaction(s): ITCHING Sulfamethoxazole-Trimethop rim 02/21/2021 Other Reaction(s): MY BLOOD GETS LOW Encounters Date Type Department Care Team Description 06/06/2025 4:17 PM EDT - 06/07/2025 12:16 AM EDT Emergency [facility] Emergency [address] [place] [address] Discharge Disposition: Left Against Medical Advice from Last 3 Months Immunizations Name Administration Dates Next Due Pfizer [...] Sign Reading Time Taken Comments Blood Pressure 128/85 06/06/2025 4:29 PM EDT Pulse 88 06/06/2025 4:29 PM EDT Temperature 36.6 C (97.8 F) 06/06/2025 4:29 PM EDT Respiratory Rate 16 06/06/2025 4:29 PM EDT Oxygen Saturation 98% 06/06/2025 4:29 PM EDT Inhaled Oxygen Concentration - - Weight 86.2 kg (190 lb) 06/06/2025 4:29 PM EDT Height 160 cm (5' 3 ) 06/06/2025 4:29 PM EDT Body Mass Index 33.66 06/06/2025 4:29 PM EDT Plan of Treatment Health Maintenance Due Date Last Done Comments Breast Cancer Screening 1960 Cholesterol Screening (Lipid Panel) 09/23/2022 Colorectal Cancer Screening: Colonoscopy 09/23/2022 Hepatitis C Screening 09/23/2022 Osteoporosis Screening (Bone Density Screening) 09/23/2022 Social Influencers of Health Screening 09/23/2022 Falls Risk Assessment 2023 COVID-19 Vaccine ( season) 2024 10/01/2021, 03/18/2021, 02/25/2021 Depression Screening 10/26/2024 Hypertension/CHF/CAD Annual BMP Blood Test 06/07/2025 Influenza Vaccine (#1) 2025 8, 09/01/2017, 09/16/2016, Additional history exists DTaP,Tdap,and Td Vaccines (3 - Td or Tdap) 01/18/2030 01/19/2020, 03/31/2017 RSV Immunization Adult Patients (1 - 1-dose 75+ series) 2033 Zoster Vaccines Completed 03/22/2021, 08/27, 03/16/2018 Pneumococcal Vaccine: 50+ Years Completed 11/22/2024, 01/01/2016 HIB Vaccines Aged Out No longer eligi [...] 20 months Aged Out No longer eligible based on patient's age to complete this topic Varicella Vaccines Aged Out No longer eligible based on patient's age to complete this topic Procedures Procedure Name Priority Date/Time Associated Diagnosis Comments ECG ANNOTATED 06/07/2025 ECG 12-LEAD STAT 06/06/2025 8:04 PM EDT from Last 3 Months Results * ECG-Annotated (06/07/2025) us Provider Onbase ECG ORDERABLES Final Result * ECG 12 lead (06/06/2025 8:04 PM EDT) Ventricular Rate ECG 82 BPM GEMUSE Atrial Rate 82 BPM GEMUSE P-R Interval 154 ms GEMUSE QRS Duration 144 ms GEMUSE Q-T Interval 420 ms GEMUSE QTc 490 ms GEMUSE P Wave [place] 39 degrees GEMUSE R [place] -34 degrees GEMUSE T [place] 18 degrees GEMUSE ECG Interpretation Normal sinus rhythm Left axis deviation Right bundle branch block Minimal voltage criteria for LVH, may be normal variant ( R in aVL ) When compared with ECG of 24-JAN-2019 16:54, Right bundle branch block is now Present Confirmed by AYSE DAVILA ([id number]) on 06/06/2025 11:57:33 PM GEMUSE 06/06/2025 8:04 PM EDT 06/06/2025 11:57 PM EDT Lula Mars MD ECG ORDERABLES Final Result GEMUSE from Last 3 Months Insurance MEDICAID - [place] Care Teams Resident Care Spec Relationship Specialty Start Date End Date Physician, Pcp Unknown PCP - General 06/06/25
== END 2025-06-22 08:42 | disposition home or self-care (01) ==
LOC: HO.HOSX 08:41
PROVIDERS: Visit Provider Physician Assistant
DX: Z13.89 Encounter for screening for other disorder (principal)

== ENCOUNTER 2025-06-28 13:00 | Outpatient (AMB) | payer MEDICAID, SELFPAY ==
--- NOTE | 2025-06-28 13:28 | A.OFFVIS_ITS ---
Intake Visit Reasons: OV- RT RTC 03/14/25 [place] Intake Note: Ashley is a 65 year old female who presents today for a follow up visit status post right RTC repair DOS: 02/27/25 s/p patient fall 06/01/25. Patient reports that she fell backwards hitting her head on the fall. She states most discomfort is located in her collar bone. She complains of pain with lifting up her arm. Allergies sulfamethoxazole (From Bactrim) Allergy (Unknown, Verified 06/28/25 13:35) Unknown trimethoprim (From Bactrim) Allergy (Unknown, Verified 06/28/25 13:35) Unknown Medication List - Last Reconciled 06/28/25 by Brett Lopez PA-C acetaminophen 650 mg (2 x 325 mg) PO Q6H PRN 30 days atorvastatin (Lipitor) 20 mg PO DAILY calcium carbonate 260 mg PO DAILY ibuprofen 800 mg PO Q8H PRN 30 days lisinopril-hydrochlorothiazide 10-12.5 mg 1 tab PO DAILY HPI HPI OV- RT RTC 03/14/25 NE: Details: 65-year-old female returns to the office today for a follow-up right shoulder status post rotator cuff repair on 02/2025. She states on 06/01 she fell however she did keep her right arm against her body and her head took the brunt of the fall. She has since developed discomfort with raising the arm but has no significant weakness. 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 Mild discomfort over the AC joint. She is able to forward flex to 100 degrees. Results Reviewed Results Reviewed: X-rays of the right shoulder obtained in the office today and reviewed by me show rotator cuff anchors intact no surrounding fractures or dislocation Assessment & Plan Assessment & Plan (1) Partial thickness rotator cuff tear: Code(s): M75.110 - Incomplete rotator cuff tear or rupture of unspecified shoulder, not specified as traumatic Category: Medical (2) Status post right rotator cuff repair: Code(s): Z98.890 - Other specified postprocedural states Category: Surgical Plan Patient will continue with physical therapy for gentle motion and periscapular stabilization. She can also work on gentle strength. I did send a prescription for ibuprofen to the pharmacy to take 3 times a day for 2 weeks to help with her acute inflammation. She will see me back in 4 weeks for routine follow up, sooner if needed. Orders: Orders XR shoulder RT min 2V 06/28/25 M25.511 - Pain in right shoulder Medications: New ibuprofen 800 mg PO Q8H PRN 90 tabs 3RF pain 30 days S52.209D - Unspecified fracture of shaft of unspecified ulna, subsequent encounter for closed fracture with routine healing Coding Level of Care Code Est Pt Level 3 (60394) Complex EM visit Add On G2211 Diagnoses Partial thickness rotator cuff tear M75.110 Status post right rotator cuff repair Z98.890
--- OUTSIDE RECORDS SUMMARY | 2025-06-28 15:21 | XMS_ITS | Clinical Summary ---
Author Organization [facility] Address [address] [place] [address] Phone Care Team Providers Care Director Of Grants Name Role Phone Physician, Pcp Unknown Primary Care Provider Ethel vailable Allergies Active Allergy Reactions Criticality Noted Date Comments Oxycodone-Acetaminophen 06/06/2025 Other Reaction(s): ITCHING Sulfamethoxazole-Trimethop rim 02/21/2021 Other Reaction(s): MY BLOOD GETS LOW Encounters Date Type Department Care Team Description 06/06/2025 4:17 PM EDT - 06/07/2025 12:[address] [facility] Emergency [address] [place] [address] Discharge Disposition: Left Against Medical [...] GEMUSE QTc 490 ms GEMUSE P Wave [place] 39 degrees GEMUSE R [place] -34 degrees GEMUSE T [place] 18 degrees GEMUSE ECG Interpretation Normal sinus [...] Months Insurance MEDICAID - [place] Care Teams Director Of Grants Relationship Specialty Start Date End Date Physician, Pcp Unknown PCP - General 06/06/25
== END 2025-06-28 13:43 | disposition home or self-care (01) ==
LOC: HO.HOS 13:01
PROVIDERS: Absent Provider Physician Assistant; PCP Nurse Practitioner Family; Visit Provider Orthopaedic Surgery
DX: M75.110 Incomplete rotator cuff tear or rupture of unspecified shoulder, not specified as traumatic (principal); Z98.890 Other specified postprocedural states
CPT/HCPCS: 99213

== ENCOUNTER → 2025-06-28 13:11 | Outpatient (BNV) | payer MEDICAID, SELFPAY | PROVIDERS: Visit Provider Radiology Diagnostic Radiology | DX: M19.011 Primary osteoarthritis, right shoulder (principal) | CPT/HCPCS: 73030 ==

== ENCOUNTER 2025-06-28 15:24 | Outpatient (REF) | payer MEDICAID, SELFPAY ==
--- NOTE | ~2025-06-28 | XR_ITS ---
EXAMINATION: XR SHOULDER, RIGHT CLINICAL INFORMATION: M25.511 - Pain in right shoulder COMPARISON: January 09, 2025. TECHNIQUE: AP external rotation, Grashey, scapular Y, and axillary views of the right shoulder. FINDINGS: Degenerative changes in the acromioclavicular joint the glenohumeral joint and the greater tuberosity right humerus. Radiopaque anchors in the right humeral head/surgical neck. No acute cortical disruption or gross malalignment. XR/XR shoulder RT min 2V IMPRESSION: Postsurgical changes. Degenerative changes without acute fracture or dislocation. Electronically signed by: Shay Stover MD 06/28/2025 01:59 PM EDT
--- OUTSIDE RECORDS SUMMARY | 2025-06-29 16:24 | XMS_ITS | Clinical Summary ---
Author Organization [facility] Address [address] [place] [address] Phone Care Team Providers Care Stars Specialist Name Role Phone Physician, Pcp Unknown Primary Care Provider Ethel vailable Allergies Active Allergy Reactions Criticality Noted Date Comments Oxycodone-Acetaminophen 06/06/2025 Other Reaction(s): ITCHING Sulfamethoxazole-Trimethop rim 02/21/2021 Other Reaction(s): MY BLOOD GETS LOW Encounters Date Type Department Care Team Description 06/06/2025 4:17 PM EDT - 06/07/2025 12:16 AM EDT [facility] Emergency [address] [place] [address] Discharge Disposition: Left Against Medical [...] GEMUSE QTc 490 ms GEMUSE P Wave [place] 39 degrees GEMUSE R [place] -34 degrees GEMUSE T [place] 18 degrees GEMUSE ECG Interpretation Normal sinus [...] Months Insurance MEDICAID - [place] Care Teams Stars Specialist Relationship Specialty Start Date End Date Physician, Pcp Unknown PCP - General 06/06/25
== END 2025-06-28 15:25 | disposition home or self-care (01) ==
LOC: HO.HOSX 15:24
PROVIDERS: Visit Provider Physician Assistant
DX: M75.110 Incomplete rotator cuff tear or rupture of unspecified shoulder, not specified as traumatic (principal); M25.511 Pain in right shoulder; S52.209D Unspecified fracture of shaft of unspecified ulna, subsequent encounter for closed fracture with routine healing; X58.XXXD Exposure to other specified factors, subsequent encounter; Z98.890 Other specified postprocedural states
CPT/HCPCS: 73030; 99212

== ENCOUNTER 2025-07-10 09:00 | Outpatient (RCR) | payer MEDICAID, SELFPAY ==
[2025-04-04 07:10] VITALS: BP 110/70; PULSE 84; O2SAT 95
--- NOTE | 2025-04-04 14:39 | MHC.PT.EP ---
[facility] [place] Office [place] Office [place] Office [address] Dianelys Schmidt [address] [phone] F: [phone] F: [phone] F: [phone] F: [phone] Physical Therapy Plan of Care Date of Evaluation: 04/04/25 Date of Surgery: 03/14/25 Diagnosis: PT Evaluation and Treatment Today M19.011 - Primary osteoarthritis, right shoulder, M75.110 - Incomplete rotator cuff tear or rupture of unspecified shoulder, not specified as traumatic; s/p repair [facility]14/[facility] Coding Level of Care Code Global (69715) Diagnoses Partial thickness rotator cuff tear M75.110 Osteoarthritis of right shoulder M19.011 Documented By:Brett Lopez03/22/25 0954 Signed By:<Electronically signed by Brett Lopez>03/22/25 1047 Assessment: Pt is a RHD 64 y/o female referred to PT s/p R RTC repair DOS 03/14/25 Procedure: RTC repair with SAD and chondrolplasty with removal of loose body, Implants: S&N double loaded 4.75 medial row x 2 and 5.0 lateral row Knotless Helacoil x 2, Regeneten bio inductive medium collagen patch. Pt notes staying one overnight due to delayed waking from surgery resulting in supplemental oxygen and c/o chest pain while in PACU. 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 Pt notes mild report of pain in R shoulder, exhibits limited ROM in R shoulder, decreased strength, and impaired lifting/mobility of the R UE. Pt currently has DONJOY sling with abd wedge; Pt admits has not been wearing the sling at night (was educated in importance of sling at all times except for hygiene and therapy). Pt will benefit from attending skilled PT services at a frequency of 1x/week x 6 weeks and then 2x/week x 6 weeks. Pt was educated in pendulums, goals of therapy, findings of evaluation, and indications for treatment. Pt was educated in the benefit of using ice to ease inflammation/pain in her shoulder. Post initial evaluation, PROM was performed with good tolerance with report of minimal pain. Pt was educated re: goals/addressed concerns/questions. Frequency and Duration: The patient will be seen 1x/week x 6 weeks, 2x/week x 6 weeks Short Term Goals: 1. AAROM>PROM flexion R shoulder abduction to 150 degrees. 2. AAROM>PROM flexion R shoulder flexion to 150 degrees. 3. Pt will demonstrate compliance with self care/ use of sling abd wedge for first six weeks. 4. Pt will initiate HEP program for R shoulder. 5. Pt will demonstrate AAROM ER to 40 degrees. Crystal Growing Technician Goals: 1. AA>AROM of the R shoulder flexion to 5/5. 2. Strength of the R shoulder abd 5/5 (when cleared per Dr. Butcher for start strengthening). 3. Pt will be I with HEP. 4. Pt will demonstrate AAROM> AROM of R shoulder abd to 120 for dressing tasks. 5. Resume RTW with good body mechanics (when cleared per Dr. Butcher). 6. Demonstrate active elevation of the R shoulder with good body mechanics. Treatment Plan: Modalities to reduce pain, spasms and effusion. Manual therapy to restore motion and function. Therapeutic exercise to improve strength and flexibility. Neuromuscular re-education for posture and balance. Therapeutic activities to return to functional activities of daily living. Electronically signed by: Sydney Rodriguez, PT, DPT Please sign and return to therapist. Thank you for your referral.
--- NOTE | 2025-04-17 15:21 | MHC.PT.OD ---
[facility] [place] Office [place] Office [place] Office [address] Dianelys Schmidt [address] [phone] F: [phone] F: [phone] F: [phone] F: [phone] Physical Therapy Daily Note Diagnosis: PT Evaluation and Treatment Today M19.011 - Primary osteoarthritis, right shoulder, M75.110 - Incomplete rotator cuff tear or rupture of unspecified shoulder, not specified as traumatic; s/p repair 03/14/[address] [facility] office Coding Level of Care Code Global (88813) Diagnoses Partial thickness rotator cuff tear M75.110 Osteoarthritis of right shoulder M19.011 Documented By:Brett Lopez03/22/25 0954 Signed By:<Electronically signed by Brett Lopez>03/22/25 1047 Date of Surgery: 03/14/25 Date of Evaluation: 04/04/25 Date of Treatment: 04/17/25 Treatments to Date: Cancellations to Date: No Shows to Date: Authorized Visits: 3 Insurance End Date: Precautions/ Contraindications: s/p R RTC repair 03/14/25 Subjective: I'm doing okay. Pt notes history of carpal tunnel pre surgery, has episodes of wrists going numb at times. Pain Score and Location: Objective Flowsheet: Tests & Measures see eval Exercises Pendulums (passively not actively) , use of ice to ease sx, benefit in taking medication prior to therapy (admits has not been taking pain medication but was educated in benefit prior to PT if sore). Standing upper trap, levator scap and cervical rotation stretches x 4R x 20 sec hold completed for R>L UE. Ice to R shoulder supine x 10 minutes post eval/PROM. Education for self care/sling awareness/removal/application. Education should not be trying to use R UE to fold clothes, iron etc. Educated elbow hand and wrist AROM, pendulum passive not active, Addressed patient questions re: surgery, repair, areas injured etc PROM R shoulder flexion/abd ~90, ER t0 40 at 45 degrees, scaption PROM elbow hand and wrist. Education for use of squeeze ball in sling. Good tolerance for PROM, pt took tylenol pre visit. Education for self-care/ HEP program, goals of PT, findings of evaluation and indications, proper fit/application and use of sling. Modalities Assessment: 04/17/25; Pt has been attending skilled PT once a week, notes some mild soreness in her shoulder. She has had improving tolerance for PROM. She has been educated to refrain from AROM/using her R UE while in the sling but admits has been challenge with this (noted was trying to fold laundry with R UE). Was educated to not use R UE for AROM/activities such as this. She will be seeing Dr. Butcher on 04/20/25. After 6 weeks, pt will be progressed to 2x/week in PT. 04/10/25: Pt also admits has been using her R UE to fold laundry/iron with sling off. Pt educated need to be in sling except when doing hygiene/PT, no AROM no use of R UE at this time. Education re: timelines for PT and goals. Verbalized understanding of education issued. Pt also reports having a fall while wearing sling, denies fall or injury to R side of body. States her L knee took the hit from the fall (abrasion noted on anterior L knee). Pt with good tolerance for PROM this date. Pt denies injury to R UE following history of fall. Mild soreness with PROM, pt noted to take tylenol prior to session this date. Pt is a RHD 64 y/o female referred to PT s/p R RTC repair DOS 03/14/25 Procedure: RTC repair with SAD and chondroplasty with removal of loose body, Implants: S&N double loaded 4.75 medial row x 2 and 5.0 lateral row Knotless Helacoil x 2, Regeneten bio inductive medium collagen patch. Pt notes staying one overnight due to delayed waking from surgery resulting in use of supplemental oxygen after c/o chest pain, while in PACU. 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 Pt notes mild report of pain in R shoulder, exhibits limited ROM in R shoulder, decreased strength, and impaired lifting/mobility of the R UE. Pt currently has DONJOY sling with abd wedge; Pt admits has not been wearing the sling at night (was educated in importance of sling at all times except for hygiene and therapy). Pt will benefit from attending skilled PT services at a frequency of 1x/week x 6 weeks and then 2x/week x 6 weeks. Pt was educated in pendulums, goals of therapy, findings of evaluation, and indications for treatment. Pt was educated in the benefit of using ice to ease inflammation/pain in her shoulder. Post initial evaluation, PROM was performed with good tolerance with report of minimal pain. Pt was educated re: goals/addressed concerns/questions. PT Plan: 1x/week x 6 weeks, 2x/week x 6 weeks Short Term Goals: 1. AAROM>PROM flexion R shoulder abduction to 150 degrees. 2. AAROM>PROM flexion R shoulder flexion to 150 degrees. 3. Pt will demonstrate compliance with self care/ use of sling abd wedge for first six weeks. 4. Pt will initiate HEP program for R shoulder. 5. Pt will demonstrate AAROM ER to 40 degrees. [facility] Goals: 1. AA>AROM of the R shoulder flexion to 5/5. 2. Strength of the R shoulder abd 5/5 (when cleared per Dr. Butcher for start strengthening). 3. Pt will be I with HEP. 4. Pt will demonstrate AAROM> AROM of R shoulder abd to 120 for dressing tasks. 5. Resume RTW with good body mechanics (when cleared per Dr. Butcher). 6. Demonstrate active elevation of the R shoulder with good body mechanics. Electronically signed by: Sydney Rodriguez, PT, DPT
--- NOTE | 2025-05-23 07:28 | MHC.PT.OD ---
[facility] [place] [facility] [place] [facility] [place] [facility] [address] Dianelys Schmidt [address] [facility] [phone] F: [phone] F: [phone] F: [phone] F: [phone] Physical Therapy Daily Note Diagnosis: PT Evaluation and Treatment Today M19.011 - Primary osteoarthritis, right shoulder, M75.110 - Incomplete rotator cuff tear or rupture of unspecified shoulder, not specified as traumatic; s/p repair 03/14/[address] [facility] office Coding Level of Care Code Global (86685) Diagnoses Partial thickness rotator cuff tear M75.110 Osteoarthritis of right shoulder M19.011 Documented By:Brett Lopez03/22/25 0954 Signed By:<Electronically signed by Brett Lopez>03/22/25 1047 Date of Surgery: 03/14/25 Date of Evaluation: 04/04/25 Date of Treatment: 05/22/25 Treatments to Date: Cancellations to Date: No Shows to Date: Authorized Visits: 9 Insurance End Date: Precautions/ Contraindications: s/p R RTC repair 03/14/25 Subjective: How do I know if I injured it in there or not? 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 Patient reports that she is doing well , with minimal pain. Allergies sulfamethoxazole (From Bactrim) Allergy (Unknown, Verified 03/22/25 09:57) Unknown trimethoprim (From Bactrim) Allergy (Unknown, Verified 03/22/25 09:57) Unknown HPI HPI PO RT RTC repair 03/14/25 NE: Details: 64-year-old woman 6 weeks status post right rotator cuff tear. She is stiff but doing well. She has been in therapy. 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 Active abduction 60 degrees. Portals clean dry and intact. Assessment & Plan Assessment & Plan (1) Status post right rotator cuff repair: Code(s): Z98.890 - Other specified postprocedural states Category: Surgical Plan: Ashley is status post right rotator cuff repair. She is stiff but faring well. She may discontinue her sling and follow up in 6 weeks. Continue PT. Instructed her on some of the mechanics of shoulder function. Plan She will follow up in 6 weeks with CHAY Lopez Coding Level of Care Code Global ([id number]) Diagnoses Status post right rotator cuff repair Z98.890 Documented By:Daryl Butcher MD04/20/25 0954 Signed By:<Electronically signed by Daryl Butcher MD>04/20/25 1045 Exercises AAROM flexion in supine x 10 sec hold x 10R, AAROM scaption x 10 sec hold x 10R, AAROM cane ER with wand x 10 sec hold x 10R Pt educated to not push into pain for AAROM, educated to not push so high or shrug with during AAROM. Pt has decreased carryover of how to perform these activities without overdoing. Constant cues to ensure AAROM vs AROM and pushing too far. Review of AAROM wall slide x 20 sec hold x 5R with avoidance of compensatory shoulder shrug with elevation. Encouraged low reps with a more frequent schedule vs pushing too far and doing too many stretches in one session. PROM flexion 110, abd to 100, ER at 45 to 45, IR to tolerance. Pt received trial of ROCKTAPE application for R UT relaxation (via I strip) and secondary small I strip applied to lateral shoulder in effort to reduce lateral shoulder discomfort. She was issued a handout for ROCKTAPE removal/education with (+) carryover reported. Education for self-care/ HEP program, goals of PT, findings of evaluation and indications, proper fit/application and use of sling. Modalities Assessment: 05/22/25: Ashley reporting more pain anteriorly today, questions if she injured her arm. Denies lifting heavy objects or falling. Pt was performing AAROM incorrectly which I discovered last session. Pt does note she has been actively using use R UE more for laundry and daily activities. She notes she has been able to use her R UE to curl her hair further in the back/side of her head on the R side. We discussed the importance of advancing AAROM gradually without pushing into pain and without compensatory shoulder shrug, reducing reps and trying to hold stretches longer vs doing too many in one session. She requires repeated cues/technique modification to perform activities correctly. She has poor mechanics with AAROM elevation. 05/15/25: Pt notes pronounced anterior shoulder pain today. Pt encouraged to reduce AAROM to supine tasks not perform in sitting as she has shown. Pt encouraged to go back to icing her shoulder and use the tylenol as prescribed. Pt noted has been using her arm for ADLs/IADLS at home (educated to avoid over-doing it). 05/08/25: Advised patient to work on AAROM supine vs standing. Pt notes difficulty with cane work advised use of mirror to improve feedback and reduce compensatory shrug. 05/05/25: Pt with good carryover for hep notes doing hep 2x daily for aarom. 04/27/25; Pt initiated in AAROM scaption in supine and AAROM hilda flexion, AAROM cane ER in supine with good tolerance. Issued HEP. Pt notes icing shoulder and performing AAROm program daily. 04/24/25: Pt was seen for post op last week, presents without sling, was advised to work on ROM and go without sling. 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 Pt initiated in AAROM flexion/scaption via table slides and cane in supine. To add AAROM ER next session. 04/17/25; Pt has been attending skilled PT once a week, notes some mild soreness in her shoulder. She has had improving tolerance for PROM. She has been educated to refrain from AROM/using her R UE while in the sling but admits has been challenge with this (noted was trying to fold laundry with R UE). Was educated to not use R UE for AROM/activities such as this. She will be seeing Dr. Butcher on 04/20/25. After 6 weeks, pt will be progressed to 2x/week in PT. 04/10/25: Pt also admits has been using her R UE to fold laundry/iron with sling off. Pt educated need to be in sling except when doing hygiene/PT, no AROM no use of R UE at this time. Education re: timelines for PT and goals. Verbalized understanding of education issued. Pt also reports having a fall while wearing sling, denies fall or injury to R side of body. States her L knee took the hit from the fall (abrasion noted on anterior L knee). Pt with good tolerance for PROM this date. Pt denies injury to R UE following history of fall. Mild soreness with PROM, pt noted to take tylenol prior to session this date. Pt is a RHD 64 y/o female referred to PT s/p R RTC repair DOS 03/14/25 Procedure: RTC repair with SAD and chondroplasty with removal of loose body, Implants: S&N double loaded 4.75 medial row x 2 and 5.0 lateral row Knotless Helacoil x 2, Regeneten bio inductive medium collagen patch. Pt notes staying one overnight due to delayed waking from surgery resulting in use of supplemental oxygen after c/o chest pain, while in PACU. 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 Pt notes mild report of pain in R shoulder, exhibits limited ROM in R shoulder, decreased strength, and impaired lifting/mobility of the R UE. Pt currently has DONJOY sling with abd wedge; Pt admits has not been wearing the sling at night (was educated in importance of sling at all times except for hygiene and therapy). Pt will benefit from attending skilled PT services at a frequency of 1x/week x 6 weeks and then 2x/week x 6 weeks. Pt was educated in pendulums, goals of therapy, findings of evaluation, and indications for treatment. Pt was educated in the benefit of using ice to ease inflammation/pain in her shoulder. Post initial evaluation, PROM was performed with good tolerance with report of minimal pain. Pt was educated re: goals/addressed concerns/questions. PT Plan: 2x/week x 6 weeks AAROM program, periscap strength Add AAROM ER next session Short Term Goals: 1. AAROM>PROM flexion R shoulder abduction to 150 degrees. 2. AAROM>PROM flexion R shoulder flexion to 150 degrees. 3. Pt will demonstrate compliance with self care/ use of sling abd wedge for first six weeks. 4. Pt will initiate HEP program for R shoulder. 5. Pt will demonstrate AAROM ER to 40 degrees. Halfway Goals: 1. AA>AROM of the R shoulder flexion to 5/5. 2. Strength of the R shoulder abd 5/5 (when cleared per Dr. Butcher for start strengthening). 3. Pt will be I with HEP. 4. Pt will demonstrate AAROM> AROM of R shoulder abd to 120 for dressing tasks. 5. Resume RTW with good body mechanics (when cleared per Dr. Butcher). 6. Demonstrate active elevation of the R shoulder with good body mechanics. Electronically signed by: Sydney Rodriguez, PT, DPT
--- NOTE | 2025-06-06 10:51 | MHC.PT.OD ---
[facility] [place] Office [place] Office [address] [place] [address] [address] [facility] [phone] F: [phone] F: [phone] F: [phone] Physical Therapy Daily Note Diagnosis: PT Evaluation and Treatment Today M19.011 - Primary osteoarthritis, right shoulder, M75.110 - Incomplete rotator cuff tear or rupture of unspecified shoulder, not specified as traumatic; s/p repair 03/14/25 book in [facility] Coding Level of Care Code Global (71759) Diagnoses Partial thickness rotator cuff tear M75.110 Osteoarthritis of right shoulder M19.011 Documented By:Brett Lopez03/22/25 0954 Signed By:<Electronically signed by Brett Lopez>03/22/25 1047 Date of Surgery: 03/14/25 Date of Evaluation: 04/04/25 Date of Treatment: 06/06/25 Treatments to Date: Cancellations to Date: No Shows to Date: Authorized Visits: 12 Insurance End Date: Precautions/ Contraindications: s/p R RTC repair 03/14/25 Subjective: I fell yesterday. I dont think I hit my shoulder but I did hit my head. (Denies LOC, denies headaches, denies nausea). Pt reports her apple watch called 911. Ambulance arrived to the house, offered transport but declined transport. Pain Score and Location: Objective Flowsheet: Tests & Measures [address] [place] [address] Office Visit Report Signed Patient: Ashley Lee LMR#: [id number] : 8Acct:[id number] Age/Sex: 64 / FADM/SER Date: 04/20/25 Loc: HO.HOSADM/SER Time:0948 Attending Provider: Daryl Butcher MD cc: PABLO RAMIREZ ASSESSMENT EXPERT~ Intake Visit Reasons: PO RT RTC repair 03/14/25 NE Intake Note: Ashley is a 64 year old right hand dominant female who presents today for a post operative follow up about one month s/p Right RTC Repair w/ SAD, Chondroplasty & Removal of Loose Body 03/14/25. Patient reports that she is doing well , with minimal pain. Allergies sulfamethoxazole (From Bactrim) Allergy (Unknown, Verified 03/22/25 09:57) Unknown trimethoprim (From Bactrim) Allergy (Unknown, Verified 03/22/25 09:57) Unknown HPI HPI PO RT RTC repair 03/14/25 NE: Details: 64-year-old woman 6 weeks status post right rotator cuff tear. She is stiff but doing well. She has been in therapy. 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 Active abduction 60 degrees. Portals clean dry and intact. Assessment & Plan Assessment & Plan (1) Status post right rotator cuff repair: Code(s): Z98.890 - Other specified postprocedural states Category: Surgical Plan: Ashley is status post right rotator cuff repair. She is stiff but faring well. She may discontinue her sling and follow up in 6 weeks. Continue PT. Instructed her on some of the mechanics of shoulder function. Plan She will follow up in 6 weeks with CHAY Lopez Coding Level of Care Code Global (36447) Diagnoses Status post right rotator cuff repair Z98.890 Documented By:Daryl Butcher MD04/20/25 0954 Signed By:<Electronically signed by Daryl Butcher MD>04/20/25 1045 Exercises Review of AAROM wall slide x 10 sec hold x 10R, AAROM flexion in standing with aide of mirror for feedback, cues to avoid compensatory UT shrug, bent over row with cues for scap activation x 2 set 10R to neutral, standing, AAROM ER with cane, AAROM IR within pain-free level (pt able to reach lateral back pocket with R UE extended) x 5R. Review of shoulder status no lifiting/reaching/overhead tasks Review of AAROM wall slide x 20 sec hold x 5R with avoidance of compensatory shoulder shrug with elevation. Encouraged low reps with a more frequent schedule vs pushing too far and doing too many stretches in one session. STM for R UT seated post AAROM activities in effort to increase tissue extensibility and reduce pain; ROCKTAPE application for R UT relaxation (via I strip) and secondary small I strip applied to R lateral shoulder in effort to reduce UT discomfort/ ease mm tension/support. Pt reports relief with tape and STM. LILIANE Nunez [address] Office Visit Report Signed Patient: Ashley Lee LMR#: [id number] : 8Acct:[id number] Age/Sex: 65 / FADM/SER Date: 06/01/25 Loc: NUHA.HOSADM/SER Time:1143 Attending Provider: Brett Lopez PA-C cc: PABLO RAMIREZ ASSESSMENT EXPERT~ Intake Visit Reasons: PO RT RTC repair 03/14/25 NE Intake Note: Ashley is a 65 year old female who presents today for a post operative visit of a right RTC repair on 03/14/25, perfromed by Dr. Butcher. Patient reports feeling soreness, states that she lifted a box yesterday and feels sore. She feels a tightness in her shoulder. She continues to attend physical therapy. Allergies sulfamethoxazole (From Bactrim) Allergy (Unknown, Verified 06/01/25 11:50) Unknown trimethoprim (From Bactrim) Allergy (Unknown, Verified 06/01/25 11:50) Unknown Medication List - Last Reconciled 06/01/25 by Brett Lopez PA-C acetaminophen 650 mg (2 x 325 mg) PO Q6H PRN 30 days atorvastatin (Lipitor) 20 mg PO DAILY calcium carbonate 260 mg PO DAILY lisinopril-hydrochlorothiazide 10-12.5 mg 1 tab PO DAILY HPI HPI PO RT RTC repair 03/14/25 NE: Details: 65-year-old female returns to the office today 6 weeks status post rotator cuff repair with Dr. Butcher on 02/2025. She has been working with physical therapy and has been progressing well. She states she did lift a box yesterday which was a little heavy and felt a strain in her shoulder. No other concerns today. 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 Internal rotation to back pocket. Assessment & Plan Assessment & Plan (1) Status post right rotator cuff repair: Code(s): Z98.890 - Other specified postprocedural states Category: Surgical Plan: She will continue to work with physical therapy slowly progressing and strength. I stressed the importance of not overdoing it with lifting or carrying objects at home. She will see us back in 6 weeks for routine postop appointment, sooner if needed. Coding Level of Care Code Global (55207) Diagnoses Status post right rotator cuff repair Z98.890 Documented By:Brett Lopez06/01/25 1147 Signed By:<Electronically signed by Brett Lopez>06/01/25 1225 Modalities Assessment: 06/06/25: Pt states she was installing an exhaust fan over her head yesterday when her step-stool gave out and she fell backwards hitting her head. She notes her Apple watch dispatched EMS services to her house however she declined seeking medical evaluation with them. She notes tucking her R shoulder inward, denies injury. She has a history of osteopenia. She is not on blood thinners. Pt states her R shoulder was not injured. She denies LOC, denies headache but states she hit her head hard. Phone call was placed to [facility] orthopedics LM with Teodora today on 06/06/25 during pt session to inform them of her her fall. Her shoulder does not have any bruising. Tightness of R UT noted. AAROM appears to be the same from baseline, AROM flexion 90, IR back pocket, ER to 45. She c/o Its not really pain its tightness. She was encouraged to reach out to seek medical screening due to history of fall, hitting her head/hx osteopenia/flying tomorrow to [place]. Pt was encouraged to seek medical evaluation. Pt states she was going to go to urgent care after leaving here. Pt will return from trip to [place] on 06/13/25. Pt verbalized understanding. Reiterated no lifting overhead, lifting objects, and importance of gentle AAROM program/icing to ease sx. 05/29/25: Ashley has attended 11 session of PT to date exhibiting slow progression of AAROM/ROM in R shoulder, advancement of posture/ periscap strength She was having a lot of pain last week and we started taping her R trapezius/STM to ease this with good response. This week she appears better. She admits she has been doing more at home including and was questioning if she injured her repair (this is now better). We discussed activity modification. She vocalizes improved sleeping patterns and ability to reach/do her hair with her R UE with improved use. She has been educated re: gentle periscap postural strength but has UT shrug and compensation. She will be seeing Dr. Butcher on 06/01/25. 05/26/25:Ashley was encouraged to gently work on AAROM wall sliddes. She has improved awareness/reduction in shrug with active elevation. She notes reduction in sx with STM/taping. She will be seeing Dr. Butcher next week on 06/01/25 then leaving for vacation. 05/22/25: Ashley reporting more pain anteriorly today, questions if she injured her arm. Denies lifting heavy objects or falling. Pt was performing AAROM incorrectly which I discovered last session. Pt does note she has been actively using use R UE more for laundry and daily activities. She notes she has been able to use her R UE to curl her hair further in the back/side of her head on the R side. We discussed the importance of advancing AAROM gradually without pushing into pain and without compensatory shoulder shrug, reducing reps and trying to hold stretches longer vs doing too many in one session. She requires repeated cues/technique modification to perform activities correctly. She has poor mechanics with AAROM elevation. 05/15/25: Pt notes pronounced anterior shoulder pain today. Pt encouraged to reduce AAROM to supine tasks not perform in sitting as she has shown. Pt encouraged to go back to icing her shoulder and use the tylenol as prescribed. Pt noted has been using her arm for ADLs/IADLS at home (educated to avoid over-doing it). 05/08/25: Advised patient to work on AAROM supine vs standing. Pt notes difficulty with cane work advised use of mirror to improve feedback and reduce compensatory shrug. 05/05/25: Pt with good carryover for hep notes doing hep 2x daily for aarom. 04/27/25; Pt initiated in AAROM scaption in supine and AAROM hilda flexion, AAROM cane ER in supine with good tolerance. Issued HEP. Pt notes icing shoulder and performing AAROm program daily. 04/24/25: Pt was seen for post op last week, presents without sling, was advised to work on ROM and go without sling. 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 Pt initiated in AAROM flexion/scaption via table slides and cane in supine. To add AAROM ER next session. 04/17/25; Pt has been attending skilled PT once a week, notes some mild soreness in her shoulder. She has had improving tolerance for PROM. She has been educated to refrain from AROM/using her R UE while in the sling but admits has been challenge with this (noted was trying to fold laundry with R UE). Was educated to not use R UE for AROM/activities such as this. She will be seeing Dr. Butcher on 04/20/25. After 6 weeks, pt will be progressed to 2x/week in PT. 04/10/25: Pt also admits has been using her R UE to fold laundry/iron with sling off. Pt educated need to be in sling except when doing hygiene/PT, no AROM no use of R UE at this time. Education re: timelines for PT and goals. Verbalized understanding of education issued. Pt also reports having a fall while wearing sling, denies fall or injury to R side of body. States her L knee took the hit from the fall (abrasion noted on anterior L knee). Pt with good tolerance for PROM this date. Pt denies injury to R UE following history of fall. Mild soreness with PROM, pt noted to take tylenol prior to session this date. Pt is a RHD 64 y/o female referred to PT s/p R RTC repair DOS 03/14/25 Procedure: RTC repair with SAD and chondroplasty with removal of loose body, Implants: S&N double loaded 4.75 medial row x 2 and 5.0 lateral row Knotless Helacoil x 2, Regeneten bio inductive medium collagen patch. Pt notes staying one overnight due to delayed waking from surgery resulting in use of supplemental oxygen after c/o chest pain, while in PACU. 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 Pt notes mild report of pain in R shoulder, exhibits limited ROM in R shoulder, decreased strength, and impaired lifting/mobility of the R UE. Pt currently has DONJOY sling with abd wedge; Pt admits has not been wearing the sling at night (was educated in importance of sling at all times except for hygiene and therapy). Pt will benefit from attending skilled PT services at a frequency of 1x/week x 6 weeks and then 2x/week x 6 weeks. Pt was educated in pendulums, goals of therapy, findings of evaluation, and indications for treatment. Pt was educated in the benefit of using ice to ease inflammation/pain in her shoulder. Post initial evaluation, PROM was performed with good tolerance with report of minimal pain. Pt was educated re: goals/addressed concerns/questions. PT Plan: Reevaluate upon return from trip Short Term Goals: 1. AAROM>PROM flexion R shoulder abduction to 150 degrees. 2. AAROM>PROM flexion R shoulder flexion to 150 degrees. 3. Pt will demonstrate compliance with self care/ use of sling abd wedge for first six weeks. 4. Pt will initiate HEP program for R shoulder. 5. Pt will demonstrate AAROM ER to 40 degrees. Fpc Goals: 1. AA>AROM of the R shoulder flexion to 5/5. 2. Strength of the R shoulder abd 5/5 (when cleared per Dr. Butcher for start strengthening). 3. Pt will be I with HEP. 4. Pt will demonstrate AAROM> AROM of R shoulder abd to 120 for dressing tasks. 5. Resume RTW with good body mechanics (when cleared per Dr. Butcher). 6. Demonstrate active elevation of the R shoulder with good body mechanics. Electronically signed by: Sydney Rodriguez, PT, DPT
--- NOTE | 2025-06-19 15:31 | MHC.PT.OD ---
[facility] [place] [facility] [place] [facility] [address] [facility] [facility] [address] [place] [address] [address] [facility] [phone] F: [phone] F: [phone] F: [phone] Physical Therapy Daily Note Diagnosis: PT Evaluation and Treatment Today M19.011 - Primary osteoarthritis, right shoulder, M75.110 - Incomplete rotator cuff tear or rupture of unspecified shoulder, not specified as traumatic; s/p repair 03/14/25 book in [facility] office Coding Level of Care Code Global (50572) Diagnoses Partial thickness rotator cuff tear M75.110 Osteoarthritis of right shoulder M19.011 Documented By:Brett Lopez03/22/25 0954 Signed By:<Electronically signed by Brett Lopez>03/22/25 1047 Date of Surgery: 03/14/25 Date of Evaluation: 04/04/25 Date of Treatment: 06/19/25 Treatments to Date: Cancellations to Date: No Shows to Date: Authorized Visits: 13 Insurance End Date: Precautions/ Contraindications: s/p R RTC repair 03/14/25 Subjective: Pt went to [facility] before leaving for [place], had head CT and R shoulder xray. Pt returns from trip to [place], states its feeling a little better. Pt states while in [place] she went to ER due to bilateral leg edema. 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 Patient reports that she is doing well , with minimal pain. Allergies sulfamethoxazole (From Bactrim) Allergy (Unknown, Verified 03/22/25 09:57) Unknown trimethoprim (From Bactrim) Allergy (Unknown, Verified 03/22/25 09:57) Unknown HPI HPI PO RT RTC repair 03/14/25 [place]: Details: 64-year-old woman 6 weeks status post right rotator cuff tear. She is stiff but doing well. She has been in therapy. 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 Active abduction 60 degrees. Portals clean dry and intact. Assessment & Plan Assessment & Plan (1) Status post right rotator cuff repair: Code(s): Z98.890 - Other specified postprocedural states Category: Surgical Plan: Ashley is status post right rotator cuff repair. She is stiff but faring well. She may discontinue her sling and follow up in 6 weeks. Continue PT. Instructed her on some of the mechanics of shoulder function. Plan She will follow up in 6 weeks with CHAY Lopez Coding Level of Care Code Global (93507) Diagnoses Status post right rotator cuff repair Z98.890 Documented By:Daryl Butcher MD04/20/25 0954 Signed By:<Electronically signed by Daryl Butcher MD>04/20/25 1045 Exercises Assessment of R shoulder flexion 95 degrees, AROM abduction 75 degrees, ER to C5, IR to lateral buttocks. Encouragement and review of gentle AAROM program for wall slides x 10 sec hold x 5R, Educated re: scap retraction,postural correction, and goals, recommendation to see [facility] [place] due to history of fall and sx. Review of AAROM wall slide x 20 sec hold x 5R with avoidance of compensatory shoulder shrug with elevation. Encouraged low reps with a more frequent schedule vs pushing too far and doing too many stretches in one session. STM for R UT /lateral shoulder/bicep in effort to reduce pain/tension. 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 Butcher. Patient reports feeling soreness, states that she lifted a box yesterday and feels sore. She feels a tightness in her shoulder. She continues to attend physical therapy. Allergies sulfamethoxazole (From Bactrim) Allergy (Unknown, Verified 06/01/25 11:50) Unknown trimethoprim (From Bactrim) Allergy (Unknown, Verified 06/01/25 11:50) Unknown Medication List - Last Reconciled 06/01/25 by Brett Lopez PA-C acetaminophen 650 mg (2 x 325 mg) PO Q6H PRN 30 days atorvastatin (Lipitor) 20 mg PO DAILY calcium carbonate 260 mg PO DAILY lisinopril-hydrochlorothiazide 10-12.5 mg 1 tab PO DAILY HPI HPI PO RT RTC repair 03/14/25 [place]: Details: 65-year-old female returns to the office today 6 weeks status post rotator cuff repair with Dr. Butcher on 02/2025. She has been working with physical therapy and has been progressing well. She states she did lift a box yesterday which was a little heavy and felt a strain in her shoulder. No other concerns today. 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 Internal rotation to back pocket. Assessment & Plan Assessment & Plan (1) Status post right rotator cuff repair: Code(s): Z98.890 - Other specified postprocedural states Category: Surgical Plan: She will continue to work with physical therapy slowly progressing and strength. I stressed the importance of not overdoing it with lifting or carrying objects at home. She will see us back in 6 weeks for routine postop appointment, sooner if needed. Coding Level of Care Code Global (84777) Diagnoses Status post right rotator cuff repair Z98.890 Documented By:Brett Lopez06/01/25 1147 Signed By:<Electronically signed by Brett Lopez>06/01/25 1225 Modalities Assessment: 06/19/25: Pt presents today after returning from trip to [place]. Notes was seen in ER at [facility] before her trip to [place] due to history of head trauma with her fall on 06/05/25. Pt also reports having a R shoulder x-ray done. She presents stating How will you know if I tore it, it feels swollen to me? Phone call placed to [facility] [place] to [place] as pt missed calls from orthopedics before she left for her trip. Over the past week she notes backing off from her exercises which appears to have helped her pain but admits went on some rides while in [place]. She presents with AROM flexion 90, AROM abd 75, ER C5, IR lat buttocks. She would benefit from assesssment/ evaluation from [facility] [place] due to history of trauma/fall. She notes relief with taping and has asked that she be taped for shoulder support. She has no bruising and her ROM appears similar to pre fall. She was scheduled for a follow up with [facility] [place] for this but then after we hung up from booking that appt she stated she has and will not be able to attend that time appt. She was educated to call [facility] [place] back and find a time that suits her. She notes she also went to the ER while in [place] due to edema in her legs but said she was not admitted. 06/06/25: Pt states she was installing an exhaust fan over her head yesterday when her step-stool gave out and she fell backwards hitting her head. She notes her Apple watch dispatched EMS services to her house however she declined seeking medical evaluation with them. She notes tucking her R shoulder inward, denies injury. She has a history of osteopenia. She is not on blood thinners. Pt states her R shoulder was not injured. She denies LOC, denies headache but states she hit her head hard. Phone call was placed to [facility] [place] LM with Teodora today on 06/06/25 during pt session to inform them of her her fall. Her shoulder does not have any bruising. Tightness of R UT noted. AAROM appears to be the same from baseline, AROM flexion 90, IR back pocket, ER to 45. She c/o Its not really pain its tightness. She was encouraged to reach out to seek medical screening due to history of fall, hitting her head/hx osteopenia/flying tomorrow to [place]. Pt was encouraged to seek medical evaluation. Pt states she was going to go to urgent care after leaving here. Pt will return from trip to [place] on 06/13/25. Pt verbalized understanding. Reiterated no lifting overhead, lifting objects, and importance of gentle AAROM program/icing to ease sx. 05/29/25: Ashley has attended 11 session of PT to date exhibiting slow progression of AAROM/ROM in R shoulder, advancement of posture/ periscap strength She was having a lot of pain last week and we started taping her R trapezius/STM to ease this with good response. This week she appears better. She admits she has been doing more at home including and was questioning if she injured her repair (this is now better). We discussed activity modification. She vocalizes improved sleeping patterns and ability to reach/do her hair with her R UE with improved use. She has been educated re: gentle periscap postural strength but has UT shrug and compensation. She will be seeing Dr. Butcher on 06/01/25. 05/26/25:Ashley was encouraged to gently work on AAROM wall sliddes. She has improved awareness/reduction in shrug with active elevation. She notes reduction in sx with STM/taping. She will be seeing Dr. Butcher next week on 06/01/25 then leaving for vacation. 05/22/25: Ashley reporting more pain anteriorly today, questions if she injured her arm. Denies lifting heavy objects or falling. Pt was performing AAROM incorrectly which I discovered last session. Pt does note she has been actively using use R UE more for laundry and daily activities. She notes she has been able to use her R UE to curl her hair further in the back/side of her head on the R side. We discussed the importance of advancing AAROM gradually without pushing into pain and without compensatory shoulder shrug, reducing reps and trying to hold stretches longer vs doing too many in one session. She requires repeated cues/technique modification to perform activities correctly. She has poor mechanics with AAROM elevation. 05/15/25: Pt notes pronounced anterior shoulder pain today. Pt encouraged to reduce AAROM to supine tasks not perform in sitting as she has shown. Pt encouraged to go back to icing her shoulder and use the tylenol as prescribed. Pt noted has been using her arm for ADLs/IADLS at home (educated to avoid over-doing it). 05/08/25: Advised patient to work on AAROM supine vs standing. Pt notes difficulty with cane work advised use of mirror to improve feedback and reduce compensatory shrug. 05/05/25: Pt with good carryover for hep notes doing hep 2x daily for aarom. 04/27/25; Pt initiated in AAROM scaption in supine and AAROM hilda flexion, AAROM cane ER in supine with good tolerance. Issued HEP. Pt notes icing shoulder and performing AAROm program daily. 04/24/25: Pt was seen for post op last week, presents without sling, was advised to work on ROM and go without sling. 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 Pt initiated in AAROM flexion/scaption via table slides and cane in supine. To add AAROM ER next session. 04/17/25; Pt has been attending skilled PT once a week, notes some mild soreness in her shoulder. She has had improving tolerance for PROM. She has been educated to refrain from AROM/using her R UE while in the sling but admits has been challenge with this (noted was trying to fold laundry with R UE). Was educated to not use R UE for AROM/activities such as this. She will be seeing Dr. Butcher on 04/20/25. After 6 weeks, pt will be progressed to 2x/week in PT. 04/10/25: Pt also admits has been using her R UE to fold laundry/iron with sling off. Pt educated need to be in sling except when doing hygiene/PT, no AROM no use of R UE at this time. Education re: timelines for PT and goals. Verbalized understanding of education issued. Pt also reports having a fall while wearing sling, denies fall or injury to R side of body. States her L knee took the hit from the fall (abrasion noted on anterior L knee). Pt with good tolerance for PROM this date. Pt denies injury to R UE following history of fall. Mild soreness with PROM, pt noted to take tylenol prior to session this date. Pt is a RHD 64 y/o female referred to PT s/p R RTC repair DOS 03/14/25 Procedure: RTC repair with SAD and chondroplasty with removal of loose body, Implants: S&N double loaded 4.75 medial row x 2 and 5.0 lateral row Knotless Helacoil x 2, Regeneten bio inductive medium collagen patch. Pt notes staying one overnight due to delayed waking from surgery resulting in use of supplemental oxygen after c/o chest pain, while in PACU. 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 Pt notes mild report of pain in R shoulder, exhibits limited ROM in R shoulder, decreased strength, and impaired lifting/mobility of the R UE. Pt currently has DONJOY sling with abd wedge; Pt admits has not been wearing the sling at night (was educated in importance of sling at all times except for hygiene and therapy). Pt will benefit from attending skilled PT services at a frequency of 1x/week x 6 weeks and then 2x/week x 6 weeks. Pt was educated in pendulums, goals of therapy, findings of evaluation, and indications for treatment. Pt was educated in the benefit of using ice to ease inflammation/pain in her shoulder. Post initial evaluation, PROM was performed with good tolerance with report of minimal pain. Pt was educated re: goals/addressed concerns/questions. PT Plan: Follow up with [facility] [place] Short Term Goals: 1. AAROM>PROM flexion R shoulder abduction to 150 degrees. 2. AAROM>PROM flexion R shoulder flexion to 150 degrees. 3. Pt will demonstrate compliance with self care/ use of sling abd wedge for first six weeks. 4. Pt will initiate HEP program for R shoulder. 5. Pt will demonstrate AAROM ER to 40 degrees. Long-Term Goals: 1. AA>AROM of the R shoulder flexion to 5/5. 2. Strength of the R shoulder abd 5/5 (when cleared per Dr. Butcher for start strengthening). 3. Pt will be I with HEP. 4. Pt will demonstrate AAROM> AROM of R shoulder abd to 120 for dressing tasks. 5. Resume RTW with good body mechanics (when cleared per Dr. Butcher). 6. Demonstrate active elevation of the R shoulder with good body mechanics. Electronically signed by: Sydney Rodriguez, PT, DPT
== END 2025-08-02 11:02 | disposition home or self-care (01) ==
LOC: HO.PTS 09:00
PROVIDERS: Visit Provider Physician Assistant
DX: M75.111 Incomplete rotator cuff tear or rupture of right shoulder, not specified as traumatic (principal); M19.011 Primary osteoarthritis, right shoulder
CPT/HCPCS: 97110; 97140; 97161; 97535

== ENCOUNTER 2025-07-26 08:47 | Outpatient (AMB) | payer MEDICAID, SELFPAY ==
--- NOTE | 2025-07-26 08:53 | MHC.OFFVIS ---
Intake Visit Reasons: 4wk f/u rt shldr rtc repair-03/14/25 NE Intake Note: Ashley is a 65 year old female who presents today for a follow up visit status post right RTC repair DOS: 02/27/25 s/p patient fall 06/01/25. Patient reports that she fell backwards hitting her head on the fall. At her last visit she was advise to continue with physical therapy for gentle motion, periscapular stabilization and gentle strength. A prescription for ibuprofen to the pharmacy to take 3 times a day for 2 weeks to help with her acute inflammation. Today patient reports she is doing well, states no pain or discomfort. She continues attending therapy and has a couple of sessions left. Allergies sulfamethoxazole (From Bactrim) Allergy (Unknown, Verified 07/26/25 08:56) Unknown trimethoprim (From Bactrim) Allergy (Unknown, Verified 07/26/25 08:56) Unknown HPI HPI 4wk f/u rt shldr rtc repair-03/14/25 NE: Details: 65-year-old female returns to the office today status post right shoulder rotator cuff repair on 02/[address] Butcher. She has been working well with physical therapy and has 3 visits left. Her sling has been discontinued and she is improving with activities. 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 She has full range of motion in all planes. She has good activation of her rotator cuff muscles and is neurovascularly intact. Assessment & Plan Assessment & Plan (1) Status post right rotator cuff repair: Code(s): Z98.890 - Other specified postprocedural states Category: Surgical Plan: Patient will continue with her home exercise program which she is discharged from physical therapy. She will continue with activities as tolerated and if any symptoms arise or there is concern she will contact our office otherwise follow up as needed. Coding Level of Care Code Est Pt Level 3 (52065) Complex EM visit Add On G2211 Diagnoses Status post right rotator cuff repair Z98.890
--- OUTSIDE RECORDS SUMMARY | 2025-07-26 09:22 | XMS_ITS | Clinical Summary ---
Author Organization [facility] Address [address] [place] [address] Phone Care Team Providers Care Power Lineworker Name Role Phone Physician, Pcp Unknown Primary Care Provider Ethel vailable Allergies Active Allergy Reactions Criticality Noted Date Comments Oxycodone-Acetaminophen 06/06/2025 Other Reaction(s): ITCHING Sulfamethoxazole-Trimethop rim 02/21/2021 Other Reaction(s): MY BLOOD GETS LOW Encounters Date Type Department Care Team Description 06/06/2025 4:17 PM EDT - 06/07/2025 12:16 AM EDT Emergency [facility] Emergency [address] [place] [address] Discharge Disposition: Left Against Medical Advice from Last 3 Months Immunizations Immunization Administration Dates Next Due Pfizer SARS-CoV-2 COVID-19, [...] Last Done Comments Breast Cancer Screening 1960 Colorectal Cancer Screening: Colonoscopy 1960 Cholesterol Screening (Lipid Panel) 09/23/2022 Hepatitis C Screening 09/23/2022 Osteoporosis Screening (Bone Density Screening) 09/23/2022 Social Influencers of Health Screening 09/23/2022 Falls Risk Assessment 2023 Depression Screening 10/26/2024 Hypertension/CHF/CAD Annual BMP Blood Test 06/07/2025 COVID-19 Vaccine ( season) 2025 10/01/2021, 03/18/2021, 02/25/2021 Influenza Vaccine (#1) 2025 8, 09/01/2017, 09/16/2016, [...] GEMUSE QTc 490 ms GEMUSE P Wave [place] 39 degrees GEMUSE R [place] -34 degrees GEMUSE T [place] 18 degrees GEMUSE ECG Interpretation Normal sinus [...] Months Insurance MEDICAID - [place] Care Teams Power Lineworker Relationship Specialty Start Date End Date Physician, Pcp Unknown PCP - General 06/06/25
== END 2025-07-26 09:17 | disposition home or self-care (01) ==
LOC: HO.HOS 08:47
PROVIDERS: Visit Provider Physician Assistant
DX: Z47.89 Encounter for other orthopedic aftercare (principal); M75.101 Unspecified rotator cuff tear or rupture of right shoulder, not specified as traumatic
CPT/HCPCS: 99213

== ENCOUNTER → 2025-07-26 08:47 | Outpatient (BNVA) | payer MEDICAID, SELFPAY | PROVIDERS: Visit Provider Physician Assistant | DX: M75.101 Unspecified rotator cuff tear or rupture of right shoulder, not specified as traumatic (principal); Z98.890 Other specified postprocedural states | CPT/HCPCS: 99212 ==